=== PATIENT | female | born 1950 | race African-American/Black ===

== ENCOUNTER 2016-11-07 17:20 | Inpatient (IN) | payer MEDICARE, BC ==
[~2016-11-07] VITALS: Ht 167.6 cm; Wt 72.6 kg
[2016-11-07 17:23] VITALS: BP 137/84
[2016-11-07] MEDS ORDERED: Morphine Sulfate 4mg/ml Inj IM ONE (18:30)
--- NOTE | 2016-11-07 19:03 | Emergency Room Report ---
History of Present Illness General Chief Complaint: Lower Back Pain or Injury Source: EMS (CARMELITA MADRIGAL P.A.) Present Illness HPI Patient brought in by ambulance complains of left-sided leg pain for 3 days. States that she has been having a cough cold and cough very hard and after she started experiencing severe low back pain is progressively got worse. Patient states that she went to urgent care and had x-rays that were negative and was discharged home with most relaxer ibuprofen and [place] which is taken with the complaints without improvement of symptoms. Patient states now that her pain has gotten worse it travels down the left leg and terminates into the left heel. States that her left leg feels very weak she is unable to walk on her left leg while experiencing difficulty lifting her left foot. States that because she cannot walk on her leg she called an ambulance to come in for evaluation. Patient denies any numbness, tingling, pressure, paralysis, cyanosis , bruising, loss of sensation, saddle Anesthesia, or incontienance. (CARMELITA MADRIGAL P.A.) Allergies: Coded Allergies: No Known Allergies (Unverified , 11/07/16) Patient History Past Medical History: see triage record Pertinent Family History: none Now: No Reviewed Nursing Documentation: PMH: Agreed, PSxH: Agreed (CARMELITA MADRIGAL P.ADouglas) Nursing Documentation-PMH Past Medical History: No Stated History (CARMELITA MADRIGAL P.ADouglas) Review of Systems All Other Systems: negative except mentioned in HPI (CARMELITA MADRIGAL P.A.) Physical Exam Vital Signs Date Time Temp Pulse Resp B/P Pulse Ox O2 Delivery O2 Flow Rate FiO2 11/07/16 17:17 80 15 137/84 95 Room Air Sp02 EP Interpretation: reviewed, normal General Appearance: no apparent distress, alert, GCS 15, non-toxic Head: normocephalic, atraumatic Neck: full range of motion, supple/symm/no masses Respiratory: chest non-tender, lungs clear, normal breath sounds, speaking full sentences Cardiovascular #1: regular rate, rhythm, no edema Cardiovascular #2: 2+ femoral (L), 2+ dorsalis pedis (R), 2+ dorsalis pedis (L) Gastrointestinal: normal bowel sounds, non tender, soft, non-distended, no guarding, no rebound Musculoskeletal: digits/nails normal, no calf tenderness, decreased range of motion - Left leg unable to perform straight leg raise due to pain, other - Patient not ambulatory, tender - Left sacrum / lumbar Neurologic: alert, oriented x3, responsive, sensory intact, speech normal, motor weakness - Left leg 4/5 flexsion, dorsiflexsion of left foot 4/5 Psychiatric: judgement/insight normal, memory normal, mood/affect normal, no suicidal/homicidal ideation Skin: normal color, no rash, warm/dry, well hydrated Lymphatic: no adenopathy (CARMELITA MADRIGAL P.A.) Medical Decision Making PA Attestation Dr. Baron is my supervising physician with whom patient management has been discussed with. (CARMELITA MADRIGAL P.A.) Diagnostic Impression: Primary Impression: Sacral fracture Qualified Codes: S32.110A - Nondisplaced zone i fracture of sacrum, initial encounter for closed fracture Additional Impression: L5 vertebral fracture Qualified Codes: S32.058A - Other fracture of fifth lumbar vertebra, initial encounter for closed fracture ER Course Pt. presents to the ED c/o Left leg and back pain Ddx considered but are not limited to fracture, pyelonephritis, kidney stone, sciatica, transverse mylenitis, muscle strain Vital signs: are WNL, pt. is afebrile H&PE are most consistent with Nondisplaced fracture of right transverse process of L5 and Nondisplaced bilateral sacral alar fracture. ORDERS: CT Scan Lumbar Spine, CBC, CMP, PT/PTT INR ED INTERVENTIONS: Morphine DISCHARGE: At this time pt. is to be admitted for continued care and management by ortho. Care plan and follow up instructions have been discussed with the patient prior to discharge. (CARMELITA MADRIGAL P.A.) ER Course The patient was noted to have sacral fracture. This appears to be related to the patient's osteoporosis. Patient was discussed with Dr. Andrzej Saldaña for orthopedic consult the patient was also discussed with Dr. Bonner for inpatient management. EKG interpreted by me normal sinus rhythm with a rate of [address] or T wave changes. Labs Test 11/07/16 19:25 White Blood Count 8.1 K/UL (4.8-10.8) Red Blood Count 4.80 M/UL (4.20-5.40) Hemoglobin 13.6 G/DL (12.0-16.0) Hematocrit 40.5 % (37.0-47.0) Mean Corpuscular Volume 84 FL (80-99) Mean Corpuscular Hemoglobin 28.2 PG (27.0-31.0) Mean Corpuscular Hemoglobin Concent 33.5 G/DL (32.0-36.0) Red Cell Distribution Width 11.6 % (11.6-14.8) Platelet Count 304 K/UL (150-450) Mean Platelet Volume 6.6 FL (6.5-10.1) Neutrophils (%) (Auto) % (45.0-75.0) Lymphocytes (%) (Auto) % (20.0-45.0) Monocytes (%) (Auto) % (1.0-10.0) Eosinophils (%) (Auto) % (0.0-3.0) Basophils (%) (Auto) % (0.0-2.0) Differential Total Cells Counted 100 Neutrophils % (Manual) 57 % (45-75) Lymphocytes % (Manual) 16 % (20-45) Monocytes % (Manual) 8 % (1-10) Eosinophils % (Manual) 19 % (0-3) Basophils % (Manual) 0 % (0-2) Band Neutrophils 0 % (0-8) Platelet Estimate Adequate Platelet Morphology Normal Red Blood Cell Morphology Normal Prothrombin Time 10.7 SEC (9.30-11.50) Prothromb Time International Ratio 1.1 (0.9-1.1) Activated Partial Thromboplast Time 24 SEC (23-33) Sodium Level 141 mEQ/L (135-145) Potassium Level 3.6 mEQ/L (3.4-4.9) Chloride Level 98 mEQ/L (98-107) Carbon Dioxide Level 25 mEQ/L (20-30) Anion Gap 18 (5-15) Blood Urea Nitrogen 7 mg/dL (7-23) Creatinine 0.6 mg/dL (0.5-0.9) Estimat Glomerular Filtration Rate > 60 mL/min (>60) Glucose Level 74 mg/dL (74-106) Calcium Level 9.0 mg/dL (8.6-10.2) Total Bilirubin 0.4 mg/dL (0.0-1.2) Aspartate Amino Transf (AST/SGOT) 21 U/L (5-40) Alanine Aminotransferase (ALT/SGPT) 17 U/L (3-33) Alkaline Phosphatase 122 U/L (35-104) Total Protein 7.3 g/dL (6.6-8.7) Albumin 3.5 g/dL (3.5-5.2) Globulin 3.8 g/dL Albumin/Globulin Ratio 0.9 (1.0-2.7) (Ry Baron) CT/MRI/US Diagnostic Results CT/MRI/US Diagnostic Results : Imaging Test Ordered: CT Lumbar w/o Contrast Impression Hypodense lesion measuring about 2.7 cm posterior left kidney is likely a cyst but cannot be fully characterized due to lack of IV contrast. Nondisplaced fracture of right transverse process of L5. Nondisplaced bilateral sacral alar fractures (CARMELITA MADRIGAL) Last Vital Signs Date Time Temp Pulse Resp B/P Pulse Ox O2 Delivery O2 Flow Rate FiO2 11/07/16 17:23 15 137/84 95 Room Air 11/07/16 17:17 80 Status: unchanged (CARMELITA MADRIGAL) Disposition: ADMITTED INPATIENT Condition: Serious Referrals: NON PHYSICIAN (PCP) CARMELITA MADRIGAL Nov 07, 2016 19:03 Ry Baron Nov 07, 2016 21:31
[2016-11-07 19:41] LABS: MEAN CORPUSCULAR HEMOGLOBIN 28.2 PG (27.0-31.0); MEAN CORPUSCULAR HGB CONC 33.5 G/DL (32.0-36.0); MEAN CORPUSCULAR VOLUME 84 FL (80-99); MEAN PLATELET VOLUME 6.6 FL (6.5-10.1); PLATELET COUNT 304 K/UL (150-450); RED CELL DISTRIBUTION WIDTH 11.6 % (11.6-14.8); WHITE BLOOD COUNT 8.1 K/UL (4.8-10.8)
[2016-11-07 19:57] LABS: INR 1.1 (0.9-1.1); PROTHROMBIN TIME 10.7 SEC (9.30-11.50)
[2016-11-07 19:58] LABS: ALANINE AMINOTRANSFERASE 17 U/L (3-33); ALBUMIN/GLOBULIN RATIO 0.9 (1.0-2.7); ANION GAP 18 (5-15); ASPARTATE AMINO TRANSFERASE 21 U/L (5-40); CARBON DIOXIDE 25 mEQ/L (20-30); CHLORIDE 98 mEQ/L (98-107); CREATININE 0.6 mg/dL (0.5-0.9); GLOMERULAR FILTRATION RATE > 60 mL/min (>60); HEMOLYSIS 0; POTASSIUM 3.6 mEQ/L (3.4-4.9); SODIUM 141 mEQ/L (135-145); TOTAL PROTEIN 7.3 g/dL (6.6-8.7)
[2016-11-07 20:17] LABS: BAND NEUTROPHILS % (MANUAL) 0 % (0-8); BASOPHILS % (MANUAL) 0 % (0-2); EOSINOPHILS % (MANUAL) 19 % (0-3); LYMPHOCYTES % (MANUAL) 16 % (20-45); NEUTROPHILS % (MANUAL) 57 % (45-75); PLATELET ESTIMATE ADEQUATE; PLATELET MORPHOLOGY NORMAL; TOTAL CELLS COUNTED 100
[2016-11-07 20:26] VITALS: BP 150/80
[2016-11-07] MEDS ORDERED: Morphine Sulfate 2mg/ml Inj IVP ONE (21:00)
[2016-11-07] MEDS ORDERED: SYNTHROID25 MCG ORAL (21:41)
[2016-11-07] MEDS ORDERED: CYTOMEL5 MCG ORAL (21:41)
[2016-11-07 23:30] VITALS: BP 146/82
[2016-11-08 01:35] VITALS: BP 143/85
[2016-11-08] MEDS ORDERED: Morphine Sulfate 4mg/ml Inj IVP ONE ×2 (03:00→07:00)
[2016-11-08 04:00] VITALS: BP 136/84
[2016-11-08] MEDS ORDERED: Lidocaine 1% MPF 10mg/ml 5ml ONE (05:42)
[2016-11-08 06:30] VITALS: BP 132/86
[2016-11-08] MEDS ORDERED: Heparin 5000 units/ml inj SUBQ ONE (09:00)
[2016-11-08] MEDS: Liothyronine 5mcg tab ORAL SCH (09:00)
[2016-11-08] MEDS ORDERED: Morphine Sulfate 2mg/ml Inj IVP ONE ×2 (09:00→13:15)
[2016-11-08] MEDS ORDERED: Morphine Sulfate 4mg/ml Inj IVP PRN (09:45)
[2016-11-08] MEDS: Heparin 5000 units/ml inj SUBQ SCH ×2 (10:01→20:22)
--- NOTE | 2016-11-08 10:43 | Diagnostic Imaging Report ---
Indication: Back pain and trauma Technique: Continuous helical transaxial imaging of the lumbar spine was obtained from the lung bases to the pubic symphysis. No IV contrast was administered. Coronal 2-D reformats were also obtained. Study obtained in a Siemens sensation [address] Total Dose length Product (DLP): [address] Dose Index Volume (CTDIvol): 14 mGy Comparison: None Findings: There is an acute fracture involving the sacrum bilaterally. This is associated with a slight kyphotic angulation of the sacrum on transvaginal images. There is a nondisplaced fracture involving the right transverse process of L5. There is no malalignment otherwise. Remainder the lumbar spine is normal. No hematoma identified. Impression: Incompletely visualized acute bilateral sacral ala fractures. Associated kyphotic deformity. Acute right L5 transverse process fracture. [facility] has communicated the preliminary results to the Emergency Department. Their findings are largely concordant with this report. The CT scanner at [facility] is accredited by the [employer] and the scans are performed using protocols designed to limit radiation exposure to as low as reasonably achievable to attain images of sufficient resolution adequate for diagnostic evaluation.
[2016-11-08] MEDS ORDERED: Benzonatate 100mg Perles ORAL ONE (11:30)
[2016-11-08] MEDS ORDERED: Tylenol #3 tab (300mg/30mg) ORAL ONE (11:30)
[2016-11-08 15:26] VITALS: BP 127/76
[2016-11-08] MEDS ORDERED: Morphine Sulfate 2mg/ml Inj IVP PRN (17:00)
[2016-11-08] MEDS ORDERED: Morphine Sulfate 2mg/ml Inj IVP SCH (18:00)
[2016-11-08] MEDS: Morphine Sulfate 4mg/ml Inj IVP PRN ×3 (18:41→23:55)
[2016-11-08 20:00] VITALS: BP 136/80
--- NOTE | 2016-11-08 22:38 | History and Physical Report ---
DATE OF ADMISSION: 11/08/2016 REASON FOR ADMISSION: Sacral fracture. HISTORY OF PRESENT ILLNESS: The patient is a 66-year-old female brought in by ambulance due to left-sided leg pain for the past three days. The patient apparently had cold and cough, apparently was coughing very hard, and she experienced severe lower back pain. The patient elected to be in acute care and x-ray was apparently reportedly negative. She was given ibuprofen and [place], but the pain did not improve. The patient's pain continues to worsen in the left leg and radiation to the left heel. She often noted some left-side weakness and presented to the emergency room. In the emergency room, the patient was seen and evaluated. The patient did undergo imaging with CT of the lumbar spine. The patient was noted to have a nondisplaced fracture of the right transverse process of L5 and nondisplaced bilateral sacral alar fracture. The patient's care was discussed with Orthopedic Surgery and was felt to be nonsurgical at this time. The patient is now being admitted for pain control. PAST MEDICAL HISTORY: Notable for hypothyroidism. MEDICATIONS: Reviewed. ALLERGIES: Reviewed. SOCIAL HISTORY: The patient is otherwise independent. Nonsmoker and nondrinker. FAMILY HISTORY: Otherwise noncontributory. REVIEW OF SYSTEMS: Otherwise negative. PHYSICAL EXAMINATION: GENERAL: The patient is a well-developed female, has mild pain. VITAL SIGNS: Blood pressure 132/86, pulse 76, respiratory rate 15, temperature 98.4 degrees, and saturation 99%. HEENT: Fairly negative. Extraocular movements are grossly intact. Oropharynx otherwise moist. NECK: Otherwise supple. LUNGS: Fairly clear. Symmetric. No rhonchi or wheezes. CARDIAC: S1 and S2. Regular rate and rhythm without clear murmurs, rubs, or gallops. ABDOMEN: Soft, nontender, and nondistended. EXTREMITIES: No cyanosis or clubbing. No significant edema. NEUROLOGIC: The patient is nonambulatory. She has pain in the left leg. Unable to perform straight leg raise due to pain. There is tenderness to right sacrum. LABORATORY DATA: The patient's lab data reviewed. Medications reviewed. IMPRESSION: 1. Acute nondisplaced fracture of the right transverse process of L5. 2. Nondisplaced bilateral sacral alar fractures. 3. severe pain 4. hypothyroid RECOMMENDATIONS: Admit for pain control. Physical therapy. Possible home health physical therapy versus acute rehabilitation was discussed with the patient and discussed with Orthopedic Surgery. Care discussed and reviewed. Follow clinically and assist with discharge planning. Dimitris Bonner M.D. DR: Ankush JOB#: [id number] CC: ELIANA
[2016-11-08] MEDS ORDERED: Zolpidem 5mg tab ORAL PRN (22:45)
[2016-11-09 00:37] VITALS: BP 142/86
[2016-11-09] MEDS: guaiFENesin w/Codeine 5ml Liq ud ORAL PRN ×2 (01:41→12:04)
[2016-11-09] MEDS: Morphine Sulfate 4mg/ml Inj IVP PRN ×7 (02:53→22:25)
[2016-11-09 04:00] VITALS: BP 146/90
[2016-11-09 08:00] VITALS: BP 149/85
--- NOTE | 2016-11-09 08:25 | General Progress Note ---
Assessment/Plan Assessment/Plan IMPRESSION: 1. Acute nondisplaced fracture of the right transverse process of L5. 2. Nondisplaced bilateral sacral alar fractures. 3. hypothyroid 4. significant pain PLAN pain rx dilaudid ortho follow up needed continue as is may need rehab impression, plan, and exam edited and reviewed in detail care discussed with RN Subjective Allergies: Coded Allergies: No Known Allergies (Unverified , 11/07/16) Subjective still in pain morphine not adequate Objective Last 24 Hour Vital Signs Date Time Temp Pulse Resp B/P Pulse Ox O2 Delivery O2 Flow Rate FiO2 11/09/16 04:00 98.2 89 21 146/90 91 Room Air 11/09/16 00:37 99.5 93 20 142/86 91 Room Air 11/08/16 20:00 98.6 101 20 136/80 91 Room Air 11/08/16 16:31 98.1 85 16 127/76 94 Room Air 11/08/16 15:26 98.1 85 16 127/76 94 Room Air 11/08/16 12:30 98.6 Intake and Output 11/08/16 11/09/16 19:00 07:00 Intake Total 1100 ml Output Total 500 ml Balance -500 ml 1100 ml Intake Oral 300 ml IV Total 800 ml Output Urine Total 500 ml # Voids 3 Height (Feet): 5 Height (Inches): 6.00 Weight (Pounds): 160 Objective GENERAL: The patient is a well-developed female, with ongoing pain HEENT: Fairly negative. NECK: Otherwise supple. LUNGS: Fairly clear. Symmetric. No rhonchi or wheezes. CARDIAC: S1 and S2. Regular rate and rhythm without clear murmurs, rubs, or gallops. ABDOMEN: Soft, nontender, and nondistended. EXTREMITIES: No cyanosis or clubbing. No significant edema. NEUROLOGIC: The patient is nonambulatory. She has pain in the left leg. Unable to perform straight leg raise due to pain. There is tenderness to right sacrum. COCO KUMAR Nov 09, 2016 08:25
[2016-11-09] MEDS: Heparin 5000 units/ml inj SUBQ SCH ×2 (09:00→22:26)
[2016-11-09] MEDS: Liothyronine 5mcg tab ORAL SCH (09:13)
[2016-11-09] MEDS ORDERED: Liothyronine 5mcg tab ORAL ONE (09:45)
[2016-11-09 12:00] VITALS: BP 150/91
[2016-11-09 16:22] VITALS: BP 156/97
[2016-11-09 20:00] VITALS: BP 140/96
--- NOTE | 2016-11-09 21:38 | Consultation ---
DATE OF CONSULTATION: 11/09/2016 ORTHOPEDIC CONSULTATION CONSULTING PHYSICIAN: Andrzej Saldaña M.D. ([facility] [place] REFERRING PHYSICIAN: Dimitris Bonner M.D. DIAGNOSIS: Nondisplaced bilateral sacral alar insufficiency fractures. HISTORY OF PRESENT ILLNESS: This is a 66-year-old woman, who had three days of left-sided leg pain following severe coughing. She had low back pain as well. She was diagnosed with L5 transverse process fracture and nondisplaced bilateral sacral alar fractures as well. She was admitted for pain control. PAST MEDICAL HISTORY: Significant for hypothyroidism. PHYSICAL EXAMINATION: She is well appearing, in no distress. She has difficulty with straight leg raise bilaterally. She has minimal pain with log rolling of her lower extremities. Distal neurovascular examination is grossly intact. DIAGNOSTIC DATA: CT scan findings revealed nondisplaced insufficiency fractures of the sacral ala. ASSESSMENT AND RECOMMENDATION: The patient is a 66-year-old with transverse process fracture of the lumbar spine as well as insufficiency fractures of her pelvis. Her pelvic fractures are nonoperative. She can do weightbearing as tolerated when pain permits. She is welcome to follow up as an outpatient in the office at anytime. Thank you for the opportunity to consult. Andrzej Saldaña M.D. ([facility] [place]) DR: LISA JOB#: [id number] CC:
[2016-11-10] VITALS: BP 149/86
[2016-11-10] MEDS: Morphine Sulfate 4mg/ml Inj IVP PRN ×6 (01:29→19:01)
[2016-11-10 04:00] VITALS: BP 141/87
[2016-11-10] MEDS: Liothyronine 5mcg tab ORAL SCH (08:45)
[2016-11-10] MEDS: Heparin 5000 units/ml inj SUBQ SCH ×2 (08:50→22:11)
--- NOTE | 2016-11-10 11:33 | Cardiology Report ---
APPROVED REPORT EKG Measurement Heart [id number] Normal sinus rhythm Normal ECG
--- NOTE | 2016-11-10 11:58 | General Progress Note ---
Assessment/Plan Assessment/Plan IMPRESSION: 1. Acute nondisplaced fracture of the right transverse process of L5. 2. Nondisplaced bilateral sacral alar fractures. 3. hypothyroid 4. significant pain PLAN pain rx dilaudid and soma ortho follow up needed continue as is may need rehab will put in eval for ARU impression, plan, and exam edited and reviewed in detail care discussed with RN Subjective Allergies: Coded Allergies: No Known Allergies (Unverified , 11/07/16) Subjective still in pain morphine not adequate changed to dilaudid soma Objective Last 24 Hour Vital Signs Date Time Temp Pulse Resp B/P Pulse Ox O2 Delivery O2 Flow Rate FiO2 11/10/16 09:15 98.1 11/10/16 04:00 97.9 84 18 141/87 97 Nasal Cannula 2.0 11/10/16 00:00 98.1 95 18 149/86 97 Nasal Cannula 2.0 11/09/16 20:00 98.1 90 18 140/96 97 Nasal Cannula 2.0 11/09/16 16:22 98.2 89 18 156/97 96 Nasal Cannula 2.0 11/09/16 13:48 93 Nasal Cannula 2.0 11/09/16 12:00 97.9 84 18 150/91 92 Nasal Cannula 2.0 Intake and Output 11/09/16 11/10/16 19:00 07:00 Intake Total 1920 ml 1840 ml Output Total 600 ml Balance 1920 ml 1240 ml Intake Oral 420 ml 1040 ml IV Total 1500 ml 800 ml Output Urine Total 600 ml # Voids 1 3 Height (Feet): 5 Height (Inches): 6.00 Weight (Pounds): 160 Objective GENERAL: The patient is a well-developed female, with ongoing pain HEENT: Fairly negative. NECK: Otherwise supple. LUNGS: Fairly clear. Symmetric. No rhonchi or wheezes. CARDIAC: S1 and S2. Regular rate and rhythm without clear murmurs, rubs, or gallops. ABDOMEN: Soft, nontender, and nondistended. EXTREMITIES: No cyanosis or clubbing. No significant edema. NEUROLOGIC: The patient is nonambulatory. She has pain in the left leg. still with pain with any movement COCO KUMAR Nov 10, 2016 11:58
[2016-11-10 12:00] VITALS: BP 138/64
--- NOTE | 2016-11-10 16:20 | Diagnostic Imaging Report ---
Indication: Left leg and low back pain. Recent abnormal CT scan Technique: Sagittal T1 fast spin echo, sagittal STIR, sagittal T2 FRFSE, axial T1, axial T2 fat saturated coronal oblique T1 fast spin echo, coronal STIR images of the sacrum Comparison: CT scan 11/07/2016 Findings: Abnormal decreased T1, abnormal STIR marrow signal are seen within the Central sacrum, predominantly within the S2 segment. A small amount of marrow signal abnormality is seen in the inferior S1 segment centrally, adjacent to the disc. There is anterior angulation of the S2 cortex. This corresponds to the abnormalities demonstrated on recent CT. Abnormal marrow signal extends into the sacral alae bilaterally. This appears diffuse on the STIR images, more focal and angulated on the T1-weighted images. This is fairly symmetrical. This also corresponds to the abnormalities described on recent CT. The coronal STIR images suggest marrow edema well below the S2 segment, centrally but this is not corroborated on the other sequences. There considerable edema of the presacral fat. There is also suggestion of a small amount of free pelvic fluid. There is suggestion of some high signal within the right L5 transverse process visible on the axial T2-weighted images, not clearly evident on the other sequences. The visualized lumbar segments are unremarkable. Visualized portions of the iliac bone are unremarkable. The bladder is distended. The uterus demonstrates multiple areas of abnormal mixed echogenicity, most likely representing multiple fibroids. Impression: Abnormal marrow signal within the central sacrum and bilateral sacral sacral wings, consistent with marrow edema. The distribution of such is concordant with the location of the acute fractures of the anterior S2 cortex and bilateral sacral wings described on recent CT. Buckling of the central S2 to cortex with angulation is consistent with the fracture described on recent CT as well Equivocal abnormal signal within the right L5 transverse process, correlating with L5 transverse process fracture which is much better visualized on the recent CT scan. Edema of the presacral fat, likely related to the above bony trauma Free fluid within the pelvis. This may be posttraumatic, but other etiologies also a possibility. Note that this is not physiologic in a postmenopausal female Fairly extensive uterine fibroids
[2016-11-10 16:24] VITALS: BP 150/91
--- NOTE | 2016-11-10 16:31 | Diagnostic Imaging Report ---
Indication: PAIN Technique: Sagittal T1 and T2 fast spin echo, sagittal STIR, axial T2 FRFSE, axial T1 FLAIR PROPELLER, axial T2 fat saturated FRFSE, axial T2 PROPELLER disc cuts Comparison: Reference made to lumbar spine CT 11/07/2016 Findings: Abnormal marrow signal and abnormal angulation within the S2 body centrally, and abnormal marrow signal throughout both sacral alae is demonstrated, consistent with the fractures described on recent CT. This is described in greater detail on sacral MRI performed at the same time. The vertebral body heights are preserved. The vertebral body marrow signal is preserved. There is abnormal increased T2 and STIR signal within the right L5 transverse process, consistent with a fracture of that structure demonstrated on recent CT. No other significant marrow abnormality is demonstrated. There is considerable increased STIR signal within the paraspinous musculature which is fairly symmetric bilaterally, extending from about L2 to the L5 level. The disc spaces are preserved. No significant disc bulge or protrusion, spinal stenosis, or neural foraminal stenosis demonstrated at any level. Incidentally noted is a 2.5 cm left renal cyst Impression: Marrow signal abnormality of the right L5 transverse process, corresponding to the acute fracture described on recent lumbar spine CT Considerable signal abnormality of the paraspinous musculature extending from about L2 to L5. This is consistent with muscular strain Signal abnormality of the sacrum, as described, consistent with sacral fractures described on prior CT and sacral MRI performed contemporaneously with the current study No evidence of significant disc pathology or neural impingement Incidental finding of 2.5 cm left renal cyst
[2016-11-10] MEDS: Levofloxacin 500mg tab ORAL SCH (18:53)
[2016-11-10 20:00] VITALS: BP 146/88
[2016-11-11 04:00] VITALS: BP 138/79
[2016-11-11 08:00] VITALS: BP 145/94
--- NOTE | 2016-11-11 08:35 | Diagnostic Imaging Report ---
Indication: COUGH Technique: One view of the chest Comparison: none Findings: Lungs and pleural spaces are clear. Heart size is normal Impression: No acute process
--- NOTE | 2016-11-11 08:48 | General Progress Note ---
Assessment/Plan Assessment/Plan IMPRESSION: 1. Acute nondisplaced fracture of the right transverse process of L5. 2. Nondisplaced bilateral sacral alar fractures. 3. hypothyroid 4. significant pain 5. respiratory congestion PLAN pain rx dilaudid and soma ortho follow up noted continue as is albuterol as needed levaquin empiric chest xr negative dc planning as patient with too much pain for home will put in eval for ARU impression, plan, and exam edited and reviewed in detail care discussed with RN Subjective Allergies: Coded Allergies: No Known Allergies (Unverified , 11/07/16) Subjective still in pain morphine not adequate changed to dilaudid soma prn some cough and congestion Objective Last 24 Hour Vital Signs Date Time Temp Pulse Resp B/P Pulse Ox O2 Delivery O2 Flow Rate FiO2 11/11/16 08:00 97.7 88 20 145/94 94 Nasal Cannula 2.0 11/11/16 04:00 98.1 79 20 138/79 96 Nasal Cannula 2.0 11/10/16 21:16 96 Nasal Cannula 2.0 28 11/10/16 21:14 82 20 Nasal Cannula 2.0 28 11/10/16 20:00 98.2 86 19 146/88 98 Nasal Cannula 2.0 11/10/16 19:30 Nasal Cannula 2.0 28 11/10/16 16:24 98.2 85 19 150/91 99 Room Air 11/10/16 15:22 98.1 11/10/16 15:22 98.1 11/10/16 12:00 98.1 76 20 138/64 98 Room Air Intake and Output 11/10/16 11/11/16 19:00 07:00 Intake Total 1100 ml 1080 ml Balance 1100 ml 1080 ml Intake Oral 600 ml 480 ml IV Total 500 ml 600 ml # Voids 4 6 Height (Feet): 5 Height (Inches): 6.00 Weight (Pounds): 160 Objective GENERAL: The patient is a well-developed female, with ongoing pain HEENT: Fairly negative. NECK: Otherwise supple. LUNGS: occasional rhonchi; otherwise clear CARDIAC: S1 and S2. Regular rate and rhythm without clear murmurs, rubs, or gallops. ABDOMEN: Soft, nontender, and nondistended. EXTREMITIES: No cyanosis or clubbing. No significant edema. NEUROLOGIC: The patient is nonambulatory. still with pain with change of position COCO KUMAR Nov 11, 2016 08:48
[2016-11-11] MEDS: Liothyronine 5mcg tab ORAL SCH (09:13)
[2016-11-11] MEDS: Heparin 5000 units/ml inj SUBQ SCH ×2 (09:15→20:38)
[2016-11-11] MEDS: Albuterol ud Inhalation HHN PRN ×2 (10:15→14:47)
[2016-11-11 12:00] VITALS: BP 138/86
[2016-11-11] MEDS: HYDROmorphone 1mg/ml Carpuject IVP PRN ×3 (13:40→20:28)
[2016-11-11 16:00] VITALS: BP 141/77
[2016-11-11] MEDS: Levofloxacin 500mg tab ORAL SCH (18:40)
[2016-11-11 20:00] VITALS: BP 136/88
[2016-11-12 00:27] VITALS: BP 140/87
[2016-11-12] MEDS: Albuterol ud Inhalation HHN PRN ×2 (01:26→07:23)
[2016-11-12 04:00] VITALS: BP 131/80
--- NOTE | 2016-11-12 05:57 | General Progress Note ---
Assessment/Plan Assessment/Plan IMPRESSION: 1. Acute nondisplaced fracture of the right transverse process of L5. 2. Nondisplaced bilateral sacral alar fractures. 3. hypothyroid 4. significant pain 5. respiratory congestion PLAN pain rx dilaudid and soma ortho follow up noted incentive allegra continue as is albuterol as needed levaquin empiric dc to SNF; patient to decide location; awaiting placement impression, plan, and exam edited and reviewed in detail care discussed with RN Subjective Allergies: Coded Allergies: No Known Allergies (Unverified , 11/07/16) Subjective pain controlled with dilaudid soma prn improved cough and congestion Objective Last 24 Hour Vital Signs Date Time Temp Pulse Resp B/P Pulse Ox O2 Delivery O2 Flow Rate FiO2 11/12/16 01:36 96 17 Nasal Cannula 2.0 28 11/12/16 01:32 28 11/12/16 01:28 97 18 100 Nasal Cannula 2.0 28 11/12/16 00:27 98.2 87 22 140/87 98 Room Air 11/11/16 20:11 Nasal Cannula 2.0 28 11/11/16 20:11 96 Nasal Cannula 2.0 28 11/11/16 20:10 76 18 Nasal Cannula 2.0 28 11/11/16 20:00 99.7 86 19 136/88 97 Nasal Cannula 2.0 11/11/16 16:00 98.2 85 20 141/77 95 Nasal Cannula 2.0 11/11/16 14:58 86 16 Nasal Cannula 2.0 28 11/11/16 14:48 83 20 99 Nasal Cannula 2.0 28 11/11/16 12:00 97.8 65 19 138/86 99 Nasal Cannula 2.0 11/11/16 10:22 89 18 Nasal Cannula 2.0 28 11/11/16 10:13 87 20 98 Nasal Cannula 2.0 28 11/11/16 08:00 97.7 88 20 145/94 94 Nasal Cannula 2.0 11/11/16 07:52 75 18 Nasal Cannula 2.0 28 11/11/16 07:52 95 Nasal Cannula 2.0 28 11/11/16 07:52 Nasal Cannula 2.0 28 Intake and Output 11/11/16 11/12/16 19:00 07:00 Intake Total 1620 ml 740 ml Balance 1620 ml 740 ml Intake Oral 720 ml 240 ml IV Total 900 ml 500 ml Height (Feet): 5 Height (Inches): 6.00 Weight (Pounds): 160 Objective GENERAL: The patient is a well-developed female, with ongoing pain HEENT: Fairly negative. NECK: Otherwise supple. LUNGS: reduced rhonchi; otherwise clear CARDIAC: S1 and S2. Regular rate and rhythm without clear murmurs, rubs, or gallops. ABDOMEN: Soft, nontender, and nondistended. EXTREMITIES: No cyanosis or clubbing. No significant edema. NEUROLOGIC: in bed; nonfocal but still with pain with change of position and minimal movement COCO KUMAR Nov 12, 2016 05:57
[2016-11-12 08:09] VITALS: BP 146/90
[2016-11-12] MEDS: Liothyronine 5mcg tab ORAL SCH (08:37)
[2016-11-12] MEDS: Heparin 5000 units/ml inj SUBQ SCH ×2 (08:39→21:42)
[2016-11-12 12:00] VITALS: BP 142/84
--- NOTE | 2016-11-12 12:45 | Diagnostic Imaging Report ---
APPROVED REPORT CPT Code: 83644 Present Symptoms Comments: Back and knee pain BILATERAL: Imaging reveals a patent deep venous system bilaterally. There is no evidence of thrombus within the femoral, popliteal or tibial segments. The greater saphenous veins are also within normal limits. Doppler indicates normal spontaneous flow within these segments.
[2016-11-12 16:00] VITALS: BP 137/95
[2016-11-12] MEDS: Levofloxacin 500mg tab ORAL SCH (18:48)
[2016-11-12] MEDS: HYDROmorphone 1mg/ml Carpuject IVP PRN ×2 (18:48→22:28)
[2016-11-12 20:00] VITALS: BP 144/103
[2016-11-13] MEDS: Albuterol ud Inhalation HHN PRN ×3 (03:15→16:02)
[2016-11-13 04:00] VITALS: BP 149/95
[2016-11-13 08:00] VITALS: BP 130/75
--- NOTE | 2016-11-13 08:38 | General Progress Note ---
Assessment/Plan Assessment/Plan IMPRESSION: 1. Acute nondisplaced fracture of the right transverse process of L5. 2. Nondisplaced bilateral sacral alar fractures. 3. hypothyroid 4. significant pain 5. respiratory congestion PLAN pain rx dilaudid and soma ortho follow up noted and no intervention planned incentive allegra continue as is albuterol as needed levaquin empiric for 5 days dc to SNF today patient agreeable not accepted to [facility] impression, plan, and exam edited and reviewed in detail care discussed with RN Subjective Allergies: Coded Allergies: No Known Allergies (Unverified , 11/07/16) Subjective pain controlled with dilaudid soma prn still not very ambulatory and has pain Objective Last 24 Hour Vital Signs Date Time Temp Pulse Resp B/P Pulse Ox O2 Delivery O2 Flow Rate FiO2 11/13/16 08:00 98.2 86 21 130/75 97 Nasal Cannula 2.0 11/13/16 05:46 98.2 11/13/16 04:00 98.2 86 18 149/95 98 Nasal Cannula 2.0 11/13/16 03:25 103 18 98 Nasal Cannula 2.0 28 11/13/16 03:11 114 22 93 Nasal Cannula 2.0 28 11/12/16 20:18 Room Air 11/12/16 20:18 96 Room Air 21 11/12/16 20:17 88 16 Room Air 21 11/12/16 20:00 98.4 100 18 144/103 98 Room Air 11/12/16 16:00 98.2 91 16 137/95 96 Room Air 11/12/16 12:00 98.0 80 20 142/84 98 Room Air Intake and Output 11/12/16 11/13/16 18:59 06:59 Intake Total 940 ml 1040 ml Output Total 500 ml Balance 940 ml 540 ml Intake Oral 240 ml 1040 ml IV Total 700 ml Output Urine Total 500 ml # Voids 4 Height (Feet): 5 Height (Inches): 6.00 Weight (Pounds): 160 Objective GENERAL: The patient is a well-developed female, with ongoing pain HEENT: Fairly negative. NECK: Otherwise supple. LUNGS: reduced rhonchi; otherwise clear CARDIAC: S1 and S2. Regular rate and rhythm without clear murmurs, rubs, or gallops. ABDOMEN: Soft, nontender, and nondistended. EXTREMITIES: No cyanosis or clubbing. No significant edema. NEUROLOGIC: in bed; nonfocal but still with pain with change of position and minimal movement COCO KUMAR Nov 13, 2016 08:38
[2016-11-13] MEDS: Liothyronine 5mcg tab ORAL SCH (08:57)
[2016-11-13] MEDS: Heparin 5000 units/ml inj SUBQ SCH (09:21)
[2016-11-13 12:00] VITALS: BP 145/84
[2016-11-13] MEDS ORDERED: Influenza Virus Vaccine 0.5ml IM ONE ×2 (13:30→14:00)
[2016-11-13 16:00] VITALS: BP 133/80
[2016-11-16] MEDS ORDERED: SOMA350 MG PO (11:32)
[2016-11-16] MEDS ORDERED: NORCO 5-325 TA1 EACH ORAL (11:32)
--- NOTE | 2016-11-16 11:40 | Discharge Summary ---
Discharge Summary Hospital Course Date of Admission Nov 07, 2016 at 19:09 Date of Discharge Nov 13, 2016 at 17:00 Admitting Diagnosis sacral fracture HPI Teri Nevarez is a 66 year old female who was admitted on Nov 07, 2016 at 19: 09 for Sacral Fracture Hospital Course dc summary #[id number] Discharge Medications New Medications: Carisoprodol* (Soma*) 350 Mg Tablet 350 MG PO Q6H PRN, #30 TAB Hydrocodone Bit/Acetaminophen 5-325* ([place] 5-325*) 1 Each Tablet 1 TAB ORAL Q6H PRN, #30 TAB 0 Refills Continued Medications: Levothyroxine Sodium* (Synthroid*) 25 Mcg Tablet 25 MCG ORAL DAILY, TAB Take in the morning on an empty stomach, at least 30 minutes before food. Liothyronine Sodium* (Cytomel*) 5 Mcg Tablet 5 MCG ORAL DAILY, TAB Discharge Condition Upon Discharge: stable Discharge Disposition Patient was discharged to SNF/Subacute Facility(03) Discharge Diagnoses: Discharge Instructions Discharge Instructions Special Instructions I have been assigned to complete a D/C Summary on this account. I was not involved in the patient management Katia Chadwick NP ([place]tein) Nov 16, 2016 11:40
--- NOTE | 2016-11-17 00:49 | Discharge Summary 2 SIG ---
DATE OF ADMISSION: 11/07/2016 DATE OF DISCHARGE: 11/13/2016 REASON FOR ADMISSION: 66-year-old female was brought by ambulance due to the left-sided leg pain for the last three days. The patient also experienced severe low back pain. The patient was taking ibuprofen at home but without no relief. The patient stated, that left leg pain continued, with radiation to left heel. She noted some left-sided weakness and presented to emergency room for evaluation. In the emergency room, the patient was seen and evaluated. The patient had a CT of the L-spine, which revealed nondisplaced fracture of the right transverse process of L5 and nondisplaced bilateral sacral alar fracture. Orthopedic surgeon seen the patient and felt that the patient was nonsurgical at this time. The patient was admitted for intractable pain control. ADMITTING DIAGNOSES: 1. Acute nondisplaced fracture of the right transverse process of L5. 2. Nondisplaced bilateral sacral alar fracture. 3. Intractable pain. 4. Hypothyroidism. HOSPITAL STAY: The patient was admitted for pain management. Surgeon seen the patient and felt that the patient was not a surgical candidate. He recommended pain control with weight bearing as tolerated. He recommended to follow up with him as outpatient. Pain management was provided along with a muscle relaxant. Physical and occupational therapists were working with the patient. Fall precautions were maintained. Chest x-ray was negative. Venous duplex bilateral lower extremities was negative. The patient subsequently undergone lumbar spine MRI, which revealed no evidence of neural impingement. The patient was evaluated for acute rehabilitation versus home health, however, the patient was not stable to go home. [facility] [place], acute rehabilitation did not accept the patient. The patient was transferred to retirement facility for short-term rehabilitation. The patient agreed with the plan. DISCHARGE DIAGNOSES: 1. Acute nondisplaced fracture right transverse process L5. 2. Nondisplaced bilateral sacral alar fracture. 3. Intractable pain, controlled -secondary to fracture. 4. Hypothyroidism. DISCHARGE MEDICATIONS: See medication reconciliation list. DISCHARGE INSTRUCTIONS: The patient to follow up with medical doctor at the facility . The patient to follow up with the surgeon as an outpatient. Dimitris Bonner M.D. I have been assigned to dictate discharge summary on this account and I was not involved in the patient's management. Katia Matadarin N.PDouglas DR: BOSSMAN JOB#: [id number] CC: ELIANA
== END 2016-11-13 17:00 | DRG 544 ==
LOC: EDBD 17:20 → EMR 18:10 → 3E 19:09 → EDBEDREQ 11-08 16:04 → EMR 11-08 16:34 → 3E 11-08 16:43 → UNDOADMIN 11-08 16:43
DX: M80.88XA Other osteoporosis with current pathological fracture, vertebra(e), initial encounter for fracture (principal); E03.9 Hypothyroidism, unspecified; Z23 Encounter for immunization
CPT/HCPCS: 36415; 71010; 72131; 72148; 72195; 80053; 85007; 85025; 85610; 85730; 86850; 86900; 86901; 93005; 93970; 94640; 94664; 94760; Q2036

== ENCOUNTER 2018-12-02 12:28 | Inpatient (IN) | payer BC, MEDICARE ==
[~2018-12-02] VITALS: Ht 162.6 cm; Wt 59.0 kg
[~2018-12-02 12:28] MED LIST: CYTOMEL5 MCG ORAL; NORCO 5-325 TA1 EACH ORAL; SOMA350 MG PO; SYNTHROID25 MCG ORAL
[2018-12-02] MEDS ORDERED: Solu-MEDROL 125mg Inj IVP ONE (13:00)
[2018-12-02] MEDS ORDERED: Ipratropium 0.02% Inh Soln 2.5ml UD HHN ONE (13:00)
--- NOTE | 2018-12-02 13:20 | Emergency Room Report ---
History of Present Illness General Chief Complaint: Dyspnea/Respdistress Source: Patient, Friend Present Illness HPI Patient was seen at [facility] on Wednesday. She was treated in the waiting room with breathing treatments. By the time she had. She was "better". She's having coughing and dyspnea and wheezing. Phlegm somewhat yellow but mostly clear and cough is non-productive. Denies significant chest pain. This is her worst attack. She's been on prednisone in the past. Never intubated. Diagnosed 2 years ago. According to friend she gets severely dyspneic frequently with cough. Never smoker or exposed to smoke. Not UTD on vaccinations. No NVD, dysuria, joint pain, headache, rashes, calf pain or edema. No depression. Admitted 2017 for sacral fracture. D/C dx: 1. Acute nondisplaced fracture right transverse process L5. 2. Nondisplaced bilateral sacral alar fracture. 3. Intractable pain, controlled -secondary to fracture. 4. Hypothyroidism. Allergies: Coded Allergies: No Known Allergies (Unverified , 11/07/16) Patient History Past Medical History: see triage record Social History: Denies: smoking Social History Narrative at home Reviewed Nursing Documentation: PMH: Agreed; PSxH: Agreed Review of Systems All Other Systems: negative except mentioned in HPI Physical Exam Vital Signs Date Time Temp Pulse Resp B/P (MAP) Pulse Ox O2 Delivery O2 Flow Rate FiO2 12/02/18 12:40 97.9 110 20 155/107 92 Room Air 12/02/18 13:35 2.0 28 Sp02 EP Interpretation: reviewed, abnormal - Interpreted as low by me General Appearance: alert, GCS 15, mild distress Head: normocephalic, atraumatic Eyes: bilateral eye normal inspection, bilateral eye PERRL ENT: normal pharynx, no angioedema, normal voice, moist mucus membranes Neck: supple Respiratory: wheezing, expiration, other - Paroxysms of cough Cardiovascular #1: no edema, no JVD, tachycardia Cardiovascular #2: 2+ radial (L) Gastrointestinal: normal inspection, normal bowel sounds, non tender Musculoskeletal: back normal, digits/nails normal, normal range of motion, no calf tenderness Neurologic: oriented x3, responsive, grossly normal Psychiatric: mood/affect normal Skin: normal color, no rash, warm/dry Medical Decision Making Diagnostic Impression: Primary Impression: COPD exacerbation Additional Impression: Eosinophilia ER Course Patient with that her worst attack of dyspnea with wheezing. Differential included includes acute myocardial infarction, exacerbation of COPD, bronchitis , pneumonia, pulmonary embolus amongst others. The patient will be evaluated with EKG, chest x-ray and labs. The patient will be treated with Solu Medrol and breathing treatments. She will also receive fairly substantial IV hydration at the moment. EKG without injury. Chest x-ray COPD labs with normal white count and eosinophilia CMP normal. Troponin negative Radiology called with question of nodule R upper lobe. Concern over possible pertussis. Azithromycin and DPT given. Patient somewhat improved with Robitussin with codeine. Still with episodes of coughing. Inhaled lidocaine given. Patient improved but is still hypoxemic. Med telemetry Dr. Bonner. Laboratory Tests Test 12/02/18 13:04 White Blood Count 5.0 K/UL (4.8-10.8) Red Blood Count 4.75 M/UL (4.20-5.40) Hemoglobin 13.7 G/DL (12.0-16.0) Hematocrit 40.4 % (37.0-47.0) Mean Corpuscular Volume 85 FL (80-99) Mean Corpuscular Hemoglobin 28.8 PG (27.0-31.0) Mean Corpuscular Hemoglobin Concent 33.8 G/DL (32.0-36.0) Red Cell Distribution Width 12.6 % (11.6-14.8) Platelet Count 248 K/UL (150-450) Mean Platelet Volume 7.2 FL (6.5-10.1) Neutrophils (%) (Auto) 59.6 % (45.0-75.0) Lymphocytes (%) (Auto) 24.2 % (20.0-45.0) Monocytes (%) (Auto) 10.3 % (1.0-10.0) H Eosinophils (%) (Auto) 4.9 % (0.0-3.0) H Basophils (%) (Auto) 1.0 % (0.0-2.0) Prothrombin Time 10.0 SEC (9.30-11.50) Prothrombin Time INR 0.9 (0.9-1.1) PTT 27 SEC (23-33) Urine Color Pale yellow Urine Appearance Clear Urine pH 6 (4.5-8.0) Urine Specific [place] 1.010 (1.005-1.035) Urine Protein Negative (NEGATIVE) Urine Glucose (UA) Negative (NEGATIVE) Urine Ketones Negative (NEGATIVE) Urine Blood 3+ (NEGATIVE) H Urine Nitrite Negative (NEGATIVE) Urine Bilirubin Negative (NEGATIVE) Urine Urobilinogen Normal MG/DL (0.0-1.0) Urine Leukocyte Esterase Negative (NEGATIVE) Urine RBC 2-4 /HPF (0 - 2) H Urine WBC 0-2 /HPF (0 - 2) Urine Squamous Epithelial Cells Occasional /LPF Urine Bacteria Occasional /HPF (NONE) Sodium Level 142 MMOL/L (136-145) Potassium Level 3.2 MMOL/L (3.5-5.1) L Chloride Level 103 MMOL/L (98-107) Carbon Dioxide Level 30 MMOL/L (21-32) Anion Gap 10 mmol/L (5-15) Blood Urea Nitrogen 6 mg/dL (7-18) L Creatinine 0.8 MG/DL (0.55-1.30) Estimate Glomerular Filtration Rate > 60 mL/min (>60) Glucose Level 105 MG/DL (74-106) Lactic Acid Level 1.40 mmol/L (0.4-2.0) Calcium Level 9.9 MG/DL (8.5-10.1) Total Bilirubin 0.4 MG/DL (0.2-1.0) Aspartate Amino Transferase (AST) 26 U/L (15-37) Alanine Aminotransferase (ALT) 32 U/L (12-78) Alkaline Phosphatase 113 U/L (46-116) Total Creatine Kinase 255 U/L (26-308) Pro-B-Type Natriuretic Peptide 111 pg/mL (0-125) Total Protein 8.4 G/DL (6.4-8.2) H Albumin 3.8 G/DL (3.4-5.0) Globulin 4.6 g/dL Albumin/Globulin Ratio 0.8 (1.0-2.7) L Microbiology Date/Time Source Procedure Growth Status 12/02/18 13:04 Nasal Nares Influenza Types A,B Antigen (NATHANALE) - Final Complete EKG Diagnostic Results Rate: normal Rhythm: NSR ST Segments: no acute changes Rhythm Strip Diag. Results EP Interpretation: yes Rhythm: NSR, no PVC's, no ectopy Chest X-Ray Diagnostic Results Chest X-Ray Diagnostic Results : Chest X-Ray Ordered: Yes # of Views/Limited/Complete: 1 View Indication: Shortness of Breath EP Interpretation: Yes Interpretation: no consolidation, no effusion, no pneumothorax, other - COPD Impression: Other Electronically Signed by: Electronically signed by Andrzej Baca MD Last Vital Signs Date Time Temp Pulse Resp B/P (MAP) Pulse Ox O2 Delivery O2 Flow Rate FiO2 12/02/18 23:12 85 18 96 Nasal Cannula 2.0 28 12/02/18 20:00 98.5 117/62 (80) Status: improved Disposition: ADMITTED INPATIENT Condition: Serious Andrzej Baca MD Dec 02, 2018 13:20
--- NOTE | 2018-12-02 13:20 | NUR ---
ED Nurse Note: pt came in due to difficulty breathing started 8am today. pt stated that its been happening to her since wednesday and got worse this morning. pt stated she was taking nebulization at home. pt denies pain. pt hooked on monitor with vital sign with in normal limit. will continue to monitor.
--- NOTE | 2018-12-02 13:30 | NUR ---
ED Nurse Note: software validation technician on bedside. respiratory therapist giving the nebulization.
[2018-12-02] MEDS: Albuterol ud Inhalation HHN SCH ×3 (13:35→14:17)
[2018-12-02 13:39] LABS: EOSINOPHILS % (AUTO) 4.9 % (0.0-3.0); HEMATOCRIT 40.4 % (37.0-47.0); HEMOGLOBIN 13.7 G/DL (12.0-16.0); LYMPHOCYTES % (AUTO) 24.2 % (20.0-45.0); MEAN CORPUSCULAR VOLUME 85 FL (80-99); MONOCYTES % (AUTO) 10.3 % (1.0-10.0); NEUTROPHILS % (AUTO) 59.6 % (45.0-75.0); PLATELET COUNT 248 K/UL (150-450); RED BLOOD COUNT 4.75 M/UL (4.20-5.40); RED CELL DISTRIBUTION WIDTH 12.6 % (11.6-14.8)
[2018-12-02 13:51] LABS: INR 0.9 (0.9-1.1)
[2018-12-02 13:52] LABS: ANION GAP 10 mmol/L (5-15); BLOOD UREA NITROGEN 6 mg/dL (7-18); CALCIUM 9.9 MG/DL (8.5-10.1); CARBON DIOXIDE 30 MMOL/L (21-32); CHLORIDE 103 MMOL/L (98-107); CREATININE 0.8 MG/DL (0.55-1.30); POTASSIUM 3.2 MMOL/L (3.5-5.1); SODIUM 142 MMOL/L (136-145)
[2018-12-02 13:57] LABS: APPEARANCE,URINE CLEAR; BILIRUBIN, URINE NEGATIVE (NEGATIVE); COLOR,URINE PALE YELLOW; GLUCOSE, URINE (UA) NEGATIVE (NEGATIVE); KETONES,URINE NEGATIVE (NEGATIVE); LEUKOCYTE ESTERASE ,URINE NEGATIVE (NEGATIVE); NITRITE,URINE NEGATIVE (NEGATIVE); PH,URINE 6 (4.5-8.0); PROTEIN,URINE NEGATIVE (NEGATIVE); UROBILINOGEN,URINE NORMAL MG/DL (0.0-1.0)
[2018-12-02 14:03] LABS: ALANINE AMINOTRANSFERASE 32 U/L (12-78); ALBUMIN 3.8 G/DL (3.4-5.0); ALBUMIN/GLOBULIN RATIO 0.8 (1.0-2.7); ALKALINE PHOSPHATASE 113 U/L (46-116); ASPARTATE AMINO TRANSFERASE 26 U/L (15-37); BILIRUBIN,TOTAL 0.4 MG/DL (0.2-1.0); CREATINE KINASE 255 U/L (26-308)
--- NOTE | 2018-12-02 14:07 | Diagnostic Imaging Report ---
Indication: Cough Technique: One view of the chest Comparison: 11/10/2016 Findings: Better inspiration currently. There is questionably a 2 cm nodule in the right upper lobe projecting over the anterior first rib, not evident previously. There may be some linear scarring in the right suprahilar region. Lungs and pleural spaces are otherwise clear. Heart size is normal. Impression: Questionable 2 cm right upper lobe nodule. Consider CT for further evaluation. No acute process otherwise
[2018-12-02] MEDS ORDERED: guaiFENesin w/Codeine 5ml Liq ud ORAL PRN (14:30)
[2018-12-02] MEDS ORDERED: Azithromycin 500 MG in D5W 275 ML IVPB ONE (15:45)
[2018-12-02] MEDS ORDERED: Tetanus/Diptheria/Pertussis IM ONE (16:00)
[2018-12-02 16:30] VITALS: BP 135/90
--- NOTE | 2018-12-02 16:35 | NUR ---
ED Nurse Note: pt is admitted to the hospital, report given to lou johnson.
[2018-12-02] MEDS ORDERED: Lidocaine 1% MPF 10mg/ml 5ml HHN ONE (17:00)
[2018-12-02 17:30] VITALS: BP 131/89
[2018-12-02] MEDS ORDERED: guaiFENesin 100mg/5ml Liq ud ORAL PRN ×2 (18:00→18:15)
--- NOTE | 2018-12-02 18:30 | NUR ---
NURSE NOTES: Received pt from MANGO LOW in ER at 1715. Pt is alert and orient x4. pt has NC 2LMP. Pt is coughing pain full. MD is aware. pt has intact iv access RAC 22G SL. Dr MEDEROS called and given admission orders, all noted and carried out. pt is coughing, iven cough syrup as order and breathing treatment as order. pt's mother in at bed side. pt consumed 80% of dinned and tolerate well. pt has fever, MD is aware and given Tylenol as order. skin is intact. all needs attended, bed is locked and is in the lowest position, call light within easy reach. will continue to monitor.
[2018-12-02] MEDS: Solu-MEDROL 40mg Inj IVP SCH (18:33)
--- NOTE | 2018-12-02 19:12 | NUR ---
CASE MANAGEMENT: REVIEW 68/F BIBA FROM HOME CC: COUGH . WHEEZING SI: COPD EXACERBATION T 100.5 HR 110 RR 24 BP 155/107 SAT 92% NC/2L K 3.2 BUN 6 IS: NS IVF BOLUS X1 SOLU MEDROL IV X1 ATROVENT HHN X1 ALBUTEROL HHN X1 AZITHROMYCIN IV X1 Tdap VACCINE IM X1 PATIENT ADMITTED TO MED/SURG UNIT 12/02/2018 DCP: PATIENT IS FROM HOME
[2018-12-02] MEDS: Albuterol/Ipratropium 3ml neb HHN SCH ×2 (19:13→23:12)
--- NOTE | 2018-12-02 19:30 | NUR ---
HAND-OFF: Report given to MANGO MONGE. Addendum: 12/02/18 at 2034 by Violeta Castellanos RN ERROR HAND-OFF: Report given to MANGO WATSON.
[2018-12-02 20:00] VITALS: BP 117/62
--- NOTE | 2018-12-02 20:09 | NUR ---
NURSE NOTES: Pt is received from MANGO Mcdaniel. Pt is a new admit to the floor. Pt is in bed, awake, alert and ambulatory. Pt is on 2L n/c. O2 sat at 94-95%. No SOB noted. Breathing treatment given by RT. Pt is noted to have painful cough. Pt has a visitor by bedside. Pt is oriented to the unit. Bed locked low in position,side rails up and call light within reach. Pt is instructed to call for assistance before getting out of bed. Pt will be monitored.
[2018-12-02] MEDS: HYDROcodone/Acetamin 5/325 tab ORAL PRN (20:48)
[2018-12-02] MEDS: Heparin 5000 units/ml inj SUBQ SCH (20:52)
--- NOTE | 2018-12-02 20:52 | NUR ---
NURSE NOTES: KCL Tab 20mEq PO given for K+ 3.[address] Arnold.
--- NOTE | 2018-12-02 22:30 | Pulmonology Progress Note ---
Assessment/Plan Assessment/Plan Pulmonary Consultation HPI Patient with history of Asthma, recent episode of sinusitis, Hypothyroidism, recently was seen at [facility] with Asthma exacerbation. She was treated in the waiting room with breathing treatments. Currently she's having coughing and dyspnea and wheezing. Has had prednisone in the past. 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 Azithromycin CT chest Laboratory Tests Test 12/02/18 13:04 White Blood Count 5.0 K/UL (4.8-10.8) Red Blood Count 4.75 M/UL (4.20-5.40) Hemoglobin 13.7 G/DL (12.0-16.0) Hematocrit 40.4 % (37.0-47.0) Mean Corpuscular Volume 85 FL (80-99) Mean Corpuscular Hemoglobin 28.8 PG (27.0-31.0) Mean Corpuscular Hemoglobin Concent 33.8 G/DL (32.0-36.0) Red Cell Distribution Width 12.6 % (11.6-14.8) Platelet Count 248 K/UL (150-450) Mean Platelet Volume 7.2 FL (6.5-10.1) Neutrophils (%) (Auto) 59.6 % (45.0-75.0) Lymphocytes (%) (Auto) 24.2 % (20.0-45.0) Monocytes (%) (Auto) 10.3 % (1.0-10.0) H Eosinophils (%) (Auto) 4.9 % (0.0-3.0) H Basophils (%) (Auto) 1.0 % (0.0-2.0) Prothrombin Time 10.0 SEC (9.30-11.50) Prothrombin Time INR 0.9 (0.9-1.1) PTT 27 SEC (23-33) Urine Color Pale yellow Urine Appearance Clear Urine pH 6 (4.5-8.0) Urine Specific [place] 1.010 (1.005-1.035) Urine Protein Negative (NEGATIVE) Urine Glucose (UA) Negative (NEGATIVE) Urine Ketones Negative (NEGATIVE) Urine Blood 3+ (NEGATIVE) H Urine Nitrite Negative (NEGATIVE) Urine Bilirubin Negative (NEGATIVE) Urine Urobilinogen Normal MG/DL (0.0-1.0) Urine Leukocyte Esterase Negative (NEGATIVE) Urine RBC 2-4 /HPF (0 - 2) H Urine WBC 0-2 /HPF (0 - 2) Urine Squamous Epithelial Cells Occasional /LPF Urine Bacteria Occasional /HPF (NONE) Sodium Level 142 MMOL/L (136-145) Potassium Level 3.2 MMOL/L (3.5-5.1) L Chloride Level 103 MMOL/L (98-107) Carbon Dioxide Level 30 MMOL/L (21-32) Anion Gap 10 mmol/L (5-15) Blood Urea Nitrogen 6 mg/dL (7-18) L Creatinine 0.8 MG/DL (0.55-1.30) Estimate Glomerular Filtration Rate > 60 mL/min (>60) Glucose Level 105 MG/DL (74-106) Lactic Acid Level 1.40 mmol/L (0.4-2.0) Calcium Level 9.9 MG/DL (8.5-10.1) Total Bilirubin 0.4 MG/DL (0.2-1.0) Aspartate Amino Transferase (AST) 26 U/L (15-37) Alanine Aminotransferase (ALT) 32 U/L (12-78) Alkaline Phosphatase 113 U/L (46-116) Total Creatine Kinase 255 U/L (26-308) Pro-B-Type Natriuretic Peptide 111 pg/mL (0-125) Total Protein 8.4 G/DL (6.4-8.2) H Albumin 3.8 G/DL (3.4-5.0) Globulin 4.6 g/dL Albumin/Globulin Ratio 0.8 (1.0-2.7) L Microbiology Date/Time Source Procedure Growth Status 12/02/18 13:04 Nasal Nares Influenza Types A,B Antigen (NATHANAEL) - Final Complete EKG: Rate: normal Rhythm: NSR ST Segments: no acute changes Chest X-Ray: Questionable nodule RUL Subjective ROS Limited/Unobtainable: No Allergies: Coded Allergies: No Known Allergies (Unverified , 11/07/16) Objective Last 24 Hour Vital Signs Date Time Temp Pulse Resp B/P (MAP) Pulse Ox O2 Delivery O2 Flow Rate FiO2 12/02/18 19:42 Nasal Cannula 2.0 12/02/18 19:23 102 20 97 Nasal Cannula 2.0 28 12/02/18 19:13 94 Nasal Cannula 2.0 28 12/02/18 19:13 96 20 94 Nasal Cannula 2.0 28 12/02/18 19:13 Nasal Cannula 2.0 28 12/02/18 19:01 99.5 12/02/18 17:30 100.5 98 20 131/89 (103) 94 12/02/18 16:35 98.7 109 24 135/90 92 Nasal Cannula 2.0 28 12/02/18 16:30 109 24 135/90 92 Nasal Cannula 2.0 12/02/18 14:18 95 22 100 Nasal Cannula 2.0 28 12/02/18 14:11 98.7 92 20 97 Nasal Cannula 2.0 28 12/02/18 14:11 92 20 Nasal Cannula 2.0 28 12/02/18 14:07 92 20 97 Nasal Cannula 2.0 28 12/02/18 13:36 90 22 Nasal Cannula 2.0 28 12/02/18 13:35 105 20 99 Nasal Cannula 2.0 28 12/02/18 12:40 97.9 110 20 155/107 92 Room Air Microbiology Date/Time Source Procedure Growth Status 12/02/18 13:04 Nasal Nares Influenza Types A,B Antigen (NATHANAEL) - Final Complete Laboratory Tests 12/02/18 13:04: White Blood Count 5.0, Red Blood Count 4.75, Hemoglobin 13.7, Hematocrit 40.4, Mean Corpuscular Volume 85, Mean Corpuscular Hemoglobin 28.8, Mean Corpuscular Hemoglobin Concent 33.8, Red Cell Distribution Width 12.6, Platelet Count 248, Mean Platelet Volume 7.2, Neutrophils (%) (Auto) 59.6, Lymphocytes (%) (Auto) 24.2, Monocytes (%) (Auto) 10.3H, Eosinophils (%) (Auto) 4.9H, Basophils (%) ( Auto) 1.0, Prothrombin Time 10.0, Prothromb Time International Ratio 0.9, Activated Partial Thromboplast Time 27, Urine Color Pale yellow, Urine Appearance Clear, Urine pH 6, Urine Specific Victor 1.010, Urine Protein Negative, Urine Glucose (UA) Negative, Urine Ketones Negative, Urine Blood 3+H, Urine Nitrite Negative, Urine Bilirubin Negative, Urine Urobilinogen Normal, Urine Leukocyte Esterase Negative, Urine RBC 2-4H, Urine WBC 0-2, Urine Squamous Epithelial Cells Occasional, Urine Bacteria Occasional, Sodium Level 142, Potassium Level 3.2L, Chloride Level 103, Carbon Dioxide Level 30, Anion Gap 10, Blood Urea Nitrogen 6L, Creatinine 0.8, Estimat Glomerular Filtration Rate > 60, Glucose Level 105, Lactic Acid Level 1.40, Calcium Level 9.9, Total Bilirubin 0.4, Aspartate Amino Transf (AST/SGOT) 26, Alanine Aminotransferase ( ALT/SGPT) 32, Alkaline Phosphatase 113, Total Creatine Kinase 255, Pro-B-Type Natriuretic Peptide 111, Total Protein 8.4H, Albumin 3.8, Globulin 4.6, Albumin/ Globulin Ratio 0.8L Current Medications Medications (Trade) Dose Ordered Sig/Reny Route PRN Reason Start Time Stop Time Status Last Admin Dose Admin Acetaminophen (Tylenol) 650 mg Q6H PRN ORAL Mild and modePain/Temp > 100.5 12/02/18 18:00 01/01/19 17:59 12/02/18 18:31 Acetaminophen/ Hydrocodone Bitart ([place] 5/325) 1 tab Q6H PRN ORAL For severe Pain 12/02/18 18:00 12/09/18 17:59 12/02/18 20:48 Albuterol/ Ipratropium (Albuterol/ Ipratropium) 3 ml Q4HRT HHN 12/02/18 19:00 12/07/18 18:59 12/02/18 19:13 Azithromycin (Zithromax) 500 mg DAILY ORAL 12/03/18 09:00 12/10/18 08:59 Carisoprodol (Soma) 350 mg Q6H PRN ORAL MUSCLE SPASM 12/02/18 19:30 01/01/19 19:29 Guaifenesin/ Dextromethorphan (Robitussin DM Syrup) 10 ml Q6H PRN ORAL For Cough 12/02/18 20:30 01/01/19 20:29 Heparin Sodium (Porcine) (Heparin 5000 units/ml) 5,000 units EVERY 12 HOURS SUBQ 12/02/18 21:00 01/01/19 20:59 12/02/18 20:52 Levothyroxine Sodium (Synthroid) 25 mcg DAILY@0630 ORAL 12/03/18 06:30 01/02/19 06:29 Liothyronine Sodium (Cytomel) 5 mcg DAILY ORAL 12/03/18 09:00 01/02/19 08:59 Methylprednisolone Sodium Succinate (Solu-MEDROL) 40 mg EVERY 6 HOURS IVP 12/02/18 18:06 01/01/19 18:05 12/02/18 18:33 Andrzej Arnold MD Dec 02, 2018 22:30
[2018-12-03] VITALS: BP 119/70
--- NOTE | 2018-12-03 | NUR ---
NURSE NOTES: Viral culture sent to lab. Pt's cough was better after Robitussin DM. Pt is placed on Droplet precaution per Dr. Garcia'S order. Specimen container given to patient to collect sputum for culture.
[2018-12-03] MEDS: Guaifenesin/DM 10ml syrup ORAL PRN ×2 (00:09→06:42)
[2018-12-03] MEDS: Solu-MEDROL 40mg Inj IVP SCH ×4 (00:09→17:08)
[2018-12-03] MEDS: Albuterol/Ipratropium 3ml neb HHN SCH ×6 (03:25→23:08)
[2018-12-03 04:00] VITALS: BP 107/73
[2018-12-03] MEDS: Levothyroxine 25mcg tab ORAL SCH (06:42)
--- NOTE | 2018-12-03 07:00 | NUR ---
NURSE NOTES: Pt is concerned about her car being left over at [facility]. Security was contacted to check on her car.
--- NOTE | 2018-12-03 07:15 | NUR ---
HAND-OFF: Report given to MANGO Mcdaniel. Informed Adion to send sputum sample to lab for culture.
--- NOTE | 2018-12-03 07:30 | NUR ---
NURSE NOTES: Received pt from RN SHIRLEY. Pt is alert and orient x4. pt has NC 2LMP. Pt is coughing. pt has intact iv access RAC 22G SL. all needs attended, bed is locked and is in the lowest position, call light within easy reach. will continue to monitor.
[2018-12-03 07:34] LABS: BASOPHILS % (AUTO) 0.4 % (0.0-2.0); HEMATOCRIT 35.5 % (37.0-47.0); HEMOGLOBIN 12.3 G/DL (12.0-16.0); LYMPHOCYTES % (AUTO) 14.5 % (20.0-45.0); MEAN CORPUSCULAR VOLUME 85 FL (80-99); MONOCYTES % (AUTO) 4.2 % (1.0-10.0); NEUTROPHILS % (AUTO) 80.8 % (45.0-75.0); PLATELET COUNT 239 K/UL (150-450); RED BLOOD COUNT 4.19 M/UL (4.20-5.40); RED CELL DISTRIBUTION WIDTH 12.8 % (11.6-14.8); WHITE BLOOD COUNT 9.4 K/UL (4.8-10.8)
[2018-12-03 08:00] VITALS: BP 124/72
[2018-12-03 08:11] LABS: ANION GAP 10 mmol/L (5-15); BLOOD UREA NITROGEN 9 mg/dL (7-18); CALCIUM 9.1 MG/DL (8.5-10.1); CARBON DIOXIDE 27 MMOL/L (21-32); CHLORIDE 104 MMOL/L (98-107); CREATININE 0.8 MG/DL (0.55-1.30); POTASSIUM 3.8 MMOL/L (3.5-5.1); SODIUM 141 MMOL/L (136-145)
[2018-12-03] MEDS: Liothyronine 5mcg tab ORAL SCH (08:28)
[2018-12-03] MEDS: Azithromycin 250mg tab ORAL SCH (08:28)
[2018-12-03] MEDS: HYDROcodone/Acetamin 5/325 tab ORAL PRN ×2 (08:29→20:24)
--- NOTE | 2018-12-03 08:30 | NUR ---
NURSE NOTES: sputum culture collected, sent to lab, wairing for result. will continue to monitor.
[2018-12-03] MEDS: Heparin 5000 units/ml inj SUBQ SCH ×2 (08:38→20:16)
--- NOTE | 2018-12-03 10:04 | Diagnostic Imaging Report ---
EXAM: CT Chest Without Intravenous Contrast CLINICAL HISTORY: COUGH TECHNIQUE: Axial computed tomography images of the chest without intravenous contrast. CTDI is 12.56 mGy and DLP is 440 mGy-cm. One or more of the following dose reduction techniques were used: automated exposure control, adjustment of the mA and/or kV according to patient size, use of iterative reconstruction technique. Coronal and sagittal images were obtained and reviewed. COMPARISON: Chest x-ray dated 12/02/18 FINDINGS: Lungs: Mild diffuse bronchial wall thickening, suggesting bronchitis. Scattered foci of peribronchial groundglass haziness in the right upper lobe and subtle tree-in-bud groundglass nodularity in the left lower lobe, likely early pneumonitis. Pleural space: Unremarkable. No pneumothorax. No significant effusion. Heart: Unremarkable. No cardiomegaly. No significant pericardial effusion. Bones/joints: Unremarkable. No acute fracture. No dislocation. Soft tissues: Unremarkable. Vasculature: Unremarkable. No thoracic aortic aneurysm. Lymph nodes: Subcentimeter mediastinal lymph nodes, likely reactive. Kidneys and ureters: 2.9 cm simple-appearing cyst in the left mid kidney. IMPRESSION: 1. Mild diffuse bronchial wall thickening, suggesting bronchitis. 2. Scattered foci of peribronchial groundglass haziness in the right upper lobe and subtle tree-in-bud groundglass nodularity in the left lower lobe, likely early infectious or inflammatory pneumonitis. Consider atypical etiologies such as viral, fungal, or mycobacterial.
--- NOTE | 2018-12-03 10:43 | NUR ---
NURSE NOTES: pt has non stop coughing, Dr MEDEROS notified, ordered Phenergan with codeine 5cc Q4HR PRN, noted and carried out. will continue to monitor.
[2018-12-03] MEDS: Promethazine/Codeine 5ml UD ORAL PRN ×3 (10:58→20:15)
--- NOTE | 2018-12-03 11:16 | History and Physical Report ---
DATE OF ADMISSION: 12/02/2018 CHIEF COMPLAINT: Shortness of breath. HISTORY OF PRESENT ILLNESS: The patient is a 68-year-old female. She has a history of asthma and hypothyroidism, presented with complaints of shortness of breath and cough. According to the patient, she was seen by her ENT approximately 10 days ago, started on Bactrim for bronchitis. Her symptoms did not improve. She continued to have worsening shortness of breath, cough, and wheezing. 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 She is now admitted for asthma exacerbation. PAST MEDICAL HISTORY: As above. PAST SURGICAL HISTORY: None. CURRENT MEDICATIONS: Reconciled and reviewed. ALLERGIES: None. FAMILY HISTORY: None. SOCIAL HISTORY: Negative for alcohol or drugs. PHYSICAL EXAMINATION: VITAL SIGNS: Temperature 98, pulse 81, respirations 18, and blood pressure 107/73. GENERAL: The patient is a well-developed, no apparent distress. HEART: Regular rate and rhythm. LUNGS: There are diffuse scant wheezes. ABDOMEN: Soft, nontender, nondistended. EXTREMITIES: Without clubbing, cyanosis, or edema. LABORATORY DATA: White count 5, hemoglobin 13, hematocrit 40. Sodium 142 and potassium was 3.2. ASSESSMENT: This is a pleasant female, admitted with complaints of shortness of breath secondary to asthma exacerbation. 1. Asthma exacerbation. 2. Hypothyroidism. PLAN: IV steroids, respiratory treatments. Continue outpatient thyroid regimen, DVT and stress ulcer prophylaxis. Moustapha George M.D. DR: KOBY JOB#: [id number] CC:
[2018-12-03 12:00] VITALS: BP 144/91
--- NOTE | 2018-12-03 15:49 | NUR ---
CERTIFIED ENDOSCOPY TECHNICIANEDITOR SI:COPD EXACERBATION VS: BP 140/80, P 89, T 98.6, RR 20, SpO2 100 on NC 2.0L O2 RBC 4.19, Hct 35.5 CXR IMPRESSION: Mild diffuse bronchial wall thickening, suggesting bronchitis. IS:[place] 5/325 1tab ALBUTEROL 3ml HHN HEPARIN SUBQ SYNTHROID 25mcg CYTOMLE 5mcg ZITHROMAX 500mg PHENERGAN WITH CODEINE 5ml MED/SURG STATUS
[2018-12-03 16:00] VITALS: BP 138/86
--- NOTE | 2018-12-03 17:28 | Pulmonology Progress Note ---
Assessment/Plan Assessment/Plan Pulmonary Consultation HPI Patient with history of Asthma, recent episode of sinusitis, Hypothyroidism, recently was seen at [facility] with Asthma exacerbation. She was treated in the waiting room with breathing treatments. Currently she's having coughing and dyspnea and wheezing. Has had prednisone in the past. Donna wheeze, still coughing CT IMPRESSION: 1. Mild diffuse bronchial wall thickening, suggesting bronchitis. 2. Scattered foci of peribronchial groundglass haziness in the right upper lobe and subtle tree-in-bud groundglass nodularity in the left lower lobe, likely early infectious or inflammatory pneumonitis. Consider atypical etiologies such as viral, fungal, or mycobacterial. Allergies: No Known Allergies Past Medical History: Asthma, recent episode of sinusitis, Hypothyroidism Social History: Denies: smoking ROS: Negative aside from above Examination: HEENT: NCAT, moist mm, JVP not elevated Chest: Bilateral wheezing Heart: HS1, HS2, RRR Abdomen: SNT, ND, no masses, no rebound Extremities: No rashes, no edema FRAMER: Intact Impression: Asthma exacerbation Recent episode of sinusitis Recent sputum cultures - Stentotrophomonas treated with Bactrim as out patient Hypothyroidism CT Chest: 1. Mild diffuse bronchial wall thickening, suggesting bronchitis. 2. Scattered foci of peribronchial groundglass haziness in the right upper lobe and subtle tree-in-bud groundglass nodularity in the left lower lobe, likely early infectious or inflammatory pneumonitis. Consider atypical etiologies such as viral, fungal, or mycobacterial. 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 Azithromycin Await cultures Influenza negative Laboratory Tests Test 12/02/18 13:04 White Blood Count 5.0 K/UL (4.8-10.8) Red Blood Count 4.75 M/UL (4.20-5.40) Hemoglobin 13.7 G/DL (12.0-16.0) Hematocrit 40.4 % (37.0-47.0) Mean Corpuscular Volume 85 FL (80-99) Mean Corpuscular Hemoglobin 28.8 PG (27.0-31.0) Mean Corpuscular Hemoglobin Concent 33.8 G/DL (32.0-36.0) Red Cell Distribution Width 12.6 % (11.6-14.8) Platelet Count 248 K/UL (150-450) Mean Platelet Volume 7.2 FL (6.5-10.1) Neutrophils (%) (Auto) 59.6 % (45.0-75.0) Lymphocytes (%) (Auto) 24.2 % (20.0-45.0) Monocytes (%) (Auto) 10.3 % (1.0-10.0) H Eosinophils (%) (Auto) 4.9 % (0.0-3.0) H Basophils (%) (Auto) 1.0 % (0.0-2.0) Prothrombin Time 10.0 SEC (9.30-11.50) Prothrombin Time INR 0.9 (0.9-1.1) PTT 27 SEC (23-33) Urine Color Pale yellow Urine Appearance Clear Urine pH 6 (4.5-8.0) Urine Specific [place] 1.010 (1.005-1.035) Urine Protein Negative (NEGATIVE) Urine Glucose (UA) Negative (NEGATIVE) Urine Ketones Negative (NEGATIVE) Urine Blood 3+ (NEGATIVE) H Urine Nitrite Negative (NEGATIVE) Urine Bilirubin Negative (NEGATIVE) Urine Urobilinogen Normal MG/DL (0.0-1.0) Urine Leukocyte Esterase Negative (NEGATIVE) Urine RBC 2-4 /HPF (0 - 2) H Urine WBC 0-2 /HPF (0 - 2) Urine Squamous Epithelial Cells Occasional /LPF Urine Bacteria Occasional /HPF (NONE) Sodium Level 142 MMOL/L (136-145) Potassium Level 3.2 MMOL/L (3.5-5.1) L Chloride Level 103 MMOL/L (98-107) Carbon Dioxide Level 30 MMOL/L (21-32) Anion Gap 10 mmol/L (5-15) Blood Urea Nitrogen 6 mg/dL (7-18) L Creatinine 0.8 MG/DL (0.55-1.30) Estimate Glomerular Filtration Rate > 60 mL/min (>60) Glucose Level 105 MG/DL (74-106) Lactic Acid Level 1.40 mmol/L (0.4-2.0) Calcium Level 9.9 MG/DL (8.5-10.1) Total Bilirubin 0.4 MG/DL (0.2-1.0) Aspartate Amino Transferase (AST) 26 U/L (15-37) Alanine Aminotransferase (ALT) 32 U/L (12-78) Alkaline Phosphatase 113 U/L (46-116) Total Creatine Kinase 255 U/L (26-308) Pro-B-Type Natriuretic Peptide 111 pg/mL (0-125) Total Protein 8.4 G/DL (6.4-8.2) H Albumin 3.8 G/DL (3.4-5.0) Globulin 4.6 g/dL Albumin/Globulin Ratio 0.8 (1.0-2.7) L Microbiology Date/Time Source Procedure Growth Status 12/02/18 13:04 Nasal Nares Influenza Types A,B Antigen (NATHANAEL) - Final Complete EKG: Rate: normal Rhythm: NSR ST Segments: no acute changes Chest X-Ray: Questionable nodule RUL Subjective ROS Limited/Unobtainable: No Respiratory: Reports: productive cough Allergies: Coded Allergies: No Known Allergies (Unverified , 11/07/16) Objective Last 24 Hour Vital Signs Date Time Temp Pulse Resp B/P (MAP) Pulse Ox O2 Delivery O2 Flow Rate FiO2 12/03/18 16:00 98.5 100 20 138/86 (103) 95 12/03/18 15:20 90 20 98 Nasal Cannula 2.0 28 12/03/18 15:08 84 20 98 Nasal Cannula 2.0 28 12/03/18 12:00 98.7 86 20 144/91 (108) 94 12/03/18 11:11 88 18 100 Nasal Cannula 2.0 28 12/03/18 10:39 77 16 98 Nasal Cannula 2.0 28 12/03/18 09:00 Nasal Cannula 2.0 12/03/18 08:59 98.3 12/03/18 08:00 98.3 93 19 124/72 (89) 97 12/03/18 06:51 82 18 99 Nasal Cannula 2.0 28 12/03/18 06:37 Nasal Cannula 2.0 28 12/03/18 06:37 98 Nasal Cannula 2.0 28 12/03/18 06:37 64 16 98 Nasal Cannula 2.0 28 12/03/18 04:00 98.1 81 18 107/73 (84) 98 12/03/18 03:35 79 16 99 Nasal Cannula 2.0 28 12/03/18 03:25 78 16 97 Nasal Cannula 2.0 28 12/03/18 00:00 97.3 89 18 119/70 (86) 95 12/02/18 23:22 88 18 99 Nasal Cannula 2.0 28 12/02/18 23:12 85 18 96 Nasal Cannula 2.0 28 12/02/18 21:00 Nasal Cannula 2.0 12/02/18 20:00 98.5 99 20 117/62 (80) 98 12/02/18 19:42 Nasal Cannula 2.0 12/02/18 19:23 102 20 97 Nasal Cannula 2.0 28 12/02/18 19:13 94 Nasal Cannula 2.0 28 12/02/18 19:13 96 20 94 Nasal Cannula 2.0 28 12/02/18 19:13 Nasal Cannula 2.0 28 12/02/18 19:01 99.5 12/02/18 17:30 100.5 98 20 131/89 (103) 94 Intake and Output 12/02/18 12/03/18 19:00 07:00 Intake Total 2275 ml Balance 2275 ml Intake IV Total 2275 ml # Voids 2 2 # Bowel Movements 1 Microbiology Date/Time Source Procedure Growth Status 12/02/18 13:04 Nasal Nares Influenza Types A,B Antigen (NATHANAEL) - Final Complete Laboratory Tests 12/03/18 06:39: White Blood Count 9.4#, Red Blood Count 4.19L, Hemoglobin 12.3, Hematocrit 35.5L , Mean Corpuscular Volume 85, Mean Corpuscular Hemoglobin 29.2, Mean Corpuscular Hemoglobin Concent 34.5, Red Cell Distribution Width 12.8, Platelet Count 239, Mean Platelet Volume 7.5, Neutrophils (%) (Auto) 80.8H, Lymphocytes ( %) (Auto) 14.5L, Monocytes (%) (Auto) 4.2, Eosinophils (%) (Auto) 0.0, Basophils (%) (Auto) 0.4, Sodium Level 141, Potassium Level 3.8, Chloride Level 104, Carbon Dioxide Level 27, Anion Gap 10, Blood Urea Nitrogen 9, Creatinine 0.8, Estimat Glomerular Filtration Rate > 60, Glucose Level 133H, Calcium Level 9.1 Current Medications Medications (Trade) Dose Ordered Sig/Reny Route PRN Reason Start Time Stop Time Status Last Admin Dose Admin Acetaminophen (Tylenol) 650 mg Q6H PRN ORAL Mild and modePain/Temp > 100.5 12/02/18 18:00 01/01/19 17:59 12/02/18 18:31 Acetaminophen/ Hydrocodone Bitart ([place] 5/325) 1 tab Q6H PRN ORAL For severe Pain 12/02/18 18:00 12/09/18 17:59 12/03/18 08:29 Albuterol/ Ipratropium (Albuterol/ Ipratropium) 3 ml Q4HRT HHN 12/02/18 19:00 12/07/18 18:59 12/03/18 15:08 Azithromycin (Zithromax) 500 mg DAILY ORAL 12/03/18 09:00 12/10/18 08:59 12/03/18 08:28 Carisoprodol (Soma) 350 mg Q6H PRN ORAL MUSCLE SPASM 12/02/18 19:30 01/01/19 19:29 12/03/18 17:09 Guaifenesin/ Dextromethorphan (Robitussin DM Syrup) 10 ml Q6H PRN ORAL For Cough 12/02/18 20:30 01/01/19 20:29 12/03/18 06:42 Heparin Sodium (Porcine) (Heparin 5000 units/ml) 5,000 units EVERY 12 HOURS SUBQ 12/02/18 21:00 01/01/19 20:59 12/03/18 08:38 Levothyroxine Sodium (Synthroid) 25 mcg DAILY@0630 ORAL 12/03/18 06:30 01/02/19 06:29 12/03/18 06:42 Liothyronine Sodium (Cytomel) 5 mcg DAILY ORAL 12/03/18 09:00 01/02/19 08:59 12/03/18 08:28 Methylprednisolone Sodium Succinate (Solu-MEDROL) 40 mg EVERY 6 HOURS IVP 12/02/18 18:06 01/01/19 18:05 12/03/18 17:08 Promethazine HCl/ Codeine (Phenergan with Codeine) 5 ml Q4H PRN ORAL For Cough 12/03/18 10:45 01/02/19 10:44 12/03/18 15:02 Andrzej Arnold MD Dec 03, 2018 17:28
--- NOTE | 2018-12-03 19:20 | NUR ---
HAND-OFF: Report given to MANGO DAUGHERTY. Addendum: 12/03/18 at 1921 by Violeta Castellanos RN ERROR HAND-OFF: Report given to MANGO PORTILLO
--- NOTE | 2018-12-03 19:23 | NUR ---
NURSE NOTES: Received pt alert and orient x4. pt has NC 2L on. Pt is coughing incessantly. pt has intact iv access RAC 22G SL. all needs attended, bed is locked and is in the lowest position, call light within reach. will continue to monitor.
[2018-12-03 20:00] VITALS: BP 140/80
[2018-12-03] MEDS ORDERED: Cefepime HCl 1 GM in D5W 55 ML IVPB SCH (21:00)
[2018-12-04] VITALS: BP 108/66
[2018-12-04] MEDS: Solu-MEDROL 40mg Inj IVP SCH ×4 (00:29→19:18)
[2018-12-04] MEDS: Albuterol/Ipratropium 3ml neb HHN SCH ×6 (03:10→23:16)
[2018-12-04 04:00] VITALS: BP 112/76
[2018-12-04] MEDS: Levothyroxine 25mcg tab ORAL SCH (05:55)
[2018-12-04] MEDS: Promethazine/Codeine 5ml UD ORAL PRN ×3 (06:22→20:28)
--- NOTE | 2018-12-04 07:40 | NUR ---
NURSE NOTES: WALKING ROUNDS DONE WITH OUTGOING RN. PATIENT AWAKE IN BED HAVING BREAKFAST. QUESTIONS ANSWERED, NEEDS MET AT THIS TIME.DISCUSSED PLAN OF CARE FOR THE DAY. VERBALIZED UNDERSTANDING.BED IN LOW AND LOCKED POSITION. CALL LIGHT WITHIN REACH.
--- NOTE | 2018-12-04 07:50 | NUR ---
HAND-OFF: Report given to MANGO Arredondo.
[2018-12-04 08:00] VITALS: BP 131/86
[2018-12-04] MEDS: Heparin 5000 units/ml inj SUBQ SCH ×2 (09:00→20:25)
[2018-12-04] MEDS: Azithromycin 250mg tab ORAL SCH (09:30)
[2018-12-04] MEDS: Liothyronine 5mcg tab ORAL SCH (09:30)
[2018-12-04] MEDS: Cefepime HCl 1 GM in D5W 55 ML IVPB SCH (09:31)
--- NOTE | 2018-12-04 10:26 | General Progress Note ---
Assessment/Plan Problem List: (1) Bronchitis ICD Codes: J40 - Bronchitis, not specified as acute or chronic SNOMED: 67327431 (2) PNA (pneumonia) ICD Codes: J18.9 - Pneumonia, unspecified organism SNOMED: 739888627 (3) COPD exacerbation ICD Codes: J44.1 - Chronic obstructive pulmonary disease with (acute) exacerbation SNOMED: 225942459 Subjective ROS Limited/Unobtainable: No Constitutional: Reports: malaise, weakness HEENT: Reports: no symptoms Cardiovascular: Reports: no symptoms Respiratory: Reports: cough Gastrointestinal/Abdominal: Reports: no symptoms Genitourinary: Reports: no symptoms Neurologic/Psychiatric: Reports: no symptoms Endocrine: Reports: no symptoms Hematologic/Lymphatic: Reports: no symptoms Allergies: Coded Allergies: No Known Allergies (Unverified , 11/07/16) All Systems: reviewed and negative except above Subjective cant stop coughing. ct with bronchitis Objective Last 24 Hour Vital Signs Date Time Temp Pulse Resp B/P (MAP) Pulse Ox O2 Delivery O2 Flow Rate FiO2 12/04/18 06:55 88 18 100 Nasal Cannula 2.0 28 12/04/18 06:42 Nasal Cannula 2.0 28 12/04/18 06:42 97 Nasal Cannula 2.0 28 12/04/18 06:42 68 18 97 Nasal Cannula 2.0 28 12/04/18 04:00 98.0 69 18 112/76 (88) 95 12/04/18 03:23 80 20 100 Nasal Cannula 2.0 28 12/04/18 03:11 76 20 97 Nasal Cannula 2.0 28 12/04/18 00:00 98.2 76 19 108/66 (80) 95 12/03/18 23:18 76 20 100 Nasal Cannula 2.0 28 12/03/18 23:08 72 20 96 Nasal Cannula 2.0 28 12/03/18 20:02 89 20 99 Nasal Cannula 2.0 28 12/03/18 20:00 Nasal Cannula 2.0 12/03/18 20:00 98.6 89 20 140/80 (100) 95 12/03/18 19:54 97 Nasal Cannula 2.0 28 12/03/18 19:54 Nasal Cannula 2.0 28 12/03/18 19:52 79 20 97 Nasal Cannula 2.0 28 12/03/18 17:39 98.5 12/03/18 16:00 98.5 100 20 138/86 (103) 95 12/03/18 15:20 90 20 98 Nasal Cannula 2.0 28 12/03/18 15:08 84 20 98 Nasal Cannula 2.0 28 12/03/18 12:00 98.7 86 20 144/91 (108) 94 12/03/18 11:11 88 18 100 Nasal Cannula 2.0 28 12/03/18 10:39 77 16 98 Nasal Cannula 2.0 28 Intake and Output 12/03/18 12/04/18 18:59 06:59 Intake Total 1100 ml 260 ml Balance 1100 ml 260 ml Intake Oral 1100 ml 260 ml # Voids 5 2 Height (Feet): 5 Height (Inches): 4.00 Weight (Pounds): 130 General Appearance: WD/WN, alert Neck: supple Cardiovascular: regular rhythm Respiratory/Chest: expiratory wheezing Abdomen: normal bowel sounds, non tender, soft Edema: no edema noted Arm (L), no edema noted Arm (R), no edema noted Leg (L), no edema noted Leg (R), no edema noted Pedal (L), no edema noted Pedal (R), no edema noted Generalized Moustapha George MD Dec 04, 2018 10:26
[2018-12-04 12:00] VITALS: BP 117/72
--- NOTE | 2018-12-04 12:30 | NUR ---
NURSE NOTES: PATIENT SEEN BY PCP. NEW ORDERS RECEIVED. PATIENT STILL HAS COUGH WITH PRODUCTION. RECEIVING COUG SUPPRESSANTS AND HHN ORDERED. SOB WITH INCREASED ACTIVITY. AWARE. VSS.[email or web address].
[2018-12-04] MEDS: Benzonatate 100mg Perles ORAL SCH ×2 (12:37→18:00)
[2018-12-04] MEDS: Flonase Nasal Inhaler 16gm NASAL SCH ×2 (14:29→19:19)
--- NOTE | 2018-12-04 15:56 | NUR ---
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
[2018-12-04 16:00] VITALS: BP 127/81
[2018-12-04] MEDS ORDERED: NS 275ml ONE (16:45)
[2018-12-04] MEDS ORDERED: Tubing IV Secondary IV ONE (16:45)
--- NOTE | 2018-12-04 18:35 | Pulmonology Progress Note ---
Assessment/Plan Assessment/Plan Pulmonary Progress Note HPI Patient with history of Asthma, recent episode of sinusitis, Hypothyroidism, recently was seen at [facility] with Asthma exacerbation. She was treated in the waiting room with breathing treatments. Currently she's having coughing and dyspnea and wheezing. Has had prednisone in the past. Donna wheeze, still coughing CT IMPRESSION: 1. Mild diffuse bronchial wall thickening, suggesting bronchitis. 2. Scattered foci of peribronchial groundglass haziness in the right upper lobe and subtle tree-in-bud groundglass nodularity in the left lower lobe, likely early infectious or inflammatory pneumonitis. Consider atypical etiologies such as viral, fungal, or mycobacterial. 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 Mild diffuse bronchial wall thickening, suggesting bronchitis. 2. Scattered foci of peribronchial groundglass haziness in the right upper lobe and subtle tree-in-bud groundglass nodularity in the left lower lobe, likely early infectious or inflammatory pneumonitis. Consider atypical etiologies such as viral, fungal, or mycobacterial. 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 Cefepime, Azithromycin Await cultures Influenza negative Laboratory Tests Test 12/02/18 13:04 White Blood Count 5.0 K/UL (4.8-10.8) Red Blood Count 4.75 M/UL (4.20-5.40) Hemoglobin 13.7 G/DL (12.0-16.0) Hematocrit 40.4 % (37.0-47.0) Mean Corpuscular Volume 85 FL (80-99) Mean Corpuscular Hemoglobin 28.8 PG (27.0-31.0) Mean Corpuscular Hemoglobin Concent 33.8 G/DL (32.0-36.0) Red Cell Distribution Width 12.6 % (11.6-14.8) Platelet Count 248 K/UL (150-450) Mean Platelet Volume 7.2 FL (6.5-10.1) Neutrophils (%) (Auto) 59.6 % (45.0-75.0) Lymphocytes (%) (Auto) 24.2 % (20.0-45.0) Monocytes (%) (Auto) 10.3 % (1.0-10.0) H Eosinophils (%) (Auto) 4.9 % (0.0-3.0) H Basophils (%) (Auto) 1.0 % (0.0-2.0) Prothrombin Time 10.0 SEC (9.30-11.50) Prothrombin Time INR 0.9 (0.9-1.1) PTT 27 SEC (23-33) Urine Color Pale yellow Urine Appearance Clear Urine pH 6 (4.5-8.0) Urine Specific [place] 1.010 (1.005-1.035) Urine Protein Negative (NEGATIVE) Urine Glucose (UA) Negative (NEGATIVE) Urine Ketones Negative (NEGATIVE) Urine Blood 3+ (NEGATIVE) H Urine Nitrite Negative (NEGATIVE) Urine Bilirubin Negative (NEGATIVE) Urine Urobilinogen Normal MG/DL (0.0-1.0) Urine Leukocyte Esterase Negative (NEGATIVE) Urine RBC 2-4 /HPF (0 - 2) H Urine WBC 0-2 /HPF (0 - 2) Urine Squamous Epithelial Cells Occasional /LPF Urine Bacteria Occasional /HPF (NONE) Sodium Level 142 MMOL/L (136-145) Potassium Level 3.2 MMOL/L (3.5-5.1) L Chloride Level 103 MMOL/L (98-107) Carbon Dioxide Level 30 MMOL/L (21-32) Anion Gap 10 mmol/L (5-15) Blood Urea Nitrogen 6 mg/dL (7-18) L Creatinine 0.8 MG/DL (0.55-1.30) Estimate Glomerular Filtration Rate > 60 mL/min (>60) Glucose Level 105 MG/DL (74-106) Lactic Acid Level 1.40 mmol/L (0.4-2.0) Calcium Level 9.9 MG/DL (8.5-10.1) Total Bilirubin 0.4 MG/DL (0.2-1.0) Aspartate Amino Transferase (AST) 26 U/L (15-37) Alanine Aminotransferase (ALT) 32 U/L (12-78) Alkaline Phosphatase 113 U/L (46-116) Total Creatine Kinase 255 U/L (26-308) Pro-B-Type Natriuretic Peptide 111 pg/mL (0-125) Total Protein 8.4 G/DL (6.4-8.2) H Albumin 3.8 G/DL (3.4-5.0) Globulin 4.6 g/dL Albumin/Globulin Ratio 0.8 (1.0-2.7) L Microbiology Date/Time Source Procedure Growth Status 12/02/18 13:04 Nasal Nares Influenza Types A,B Antigen (NATHANAEL) - Final Complete EKG: Rate: normal Rhythm: NSR ST Segments: no acute changes Chest X-Ray: Questionable nodule RUL Subjective ROS Limited/Unobtainable: No Allergies: Coded Allergies: No Known Allergies (Unverified , 11/07/16) Objective Last 24 Hour Vital Signs Date Time Temp Pulse Resp B/P (MAP) Pulse Ox O2 Delivery O2 Flow Rate FiO2 12/04/18 16:00 98.9 79 19 127/81 (96) 96 12/04/18 15:00 98 24 97 Nasal Cannula 2.0 28 12/04/18 14:59 98.1 12/04/18 14:41 82 20 97 Nasal Cannula 2.0 28 12/04/18 12:00 98.1 76 21 117/72 (87) 96 12/04/18 11:47 98.1 12/04/18 11:02 92 22 100 Nasal Cannula 2.0 28 12/04/18 10:46 88 22 96 Nasal Cannula 2.0 28 12/04/18 09:00 Nasal Cannula 3.0 12/04/18 08:00 98.1 93 16 131/86 (101) 93 12/04/18 06:55 88 18 100 Nasal Cannula 2.0 28 12/04/18 06:42 Nasal Cannula 2.0 28 12/04/18 06:42 97 Nasal Cannula 2.0 28 12/04/18 06:42 68 18 97 Nasal Cannula 2.0 28 12/04/18 04:00 98.0 69 18 112/76 (88) 95 12/04/18 03:23 80 20 100 Nasal Cannula 2.0 28 12/04/18 03:11 76 20 97 Nasal Cannula 2.0 28 12/04/18 00:00 98.2 76 19 108/66 (80) 95 12/03/18 23:18 76 20 100 Nasal Cannula 2.0 28 12/03/18 23:08 72 20 96 Nasal Cannula 2.0 28 12/03/18 20:02 89 20 99 Nasal Cannula 2.0 28 12/03/18 20:00 Nasal Cannula 2.0 12/03/18 20:00 98.6 89 20 140/80 (100) 95 12/03/18 19:54 97 Nasal Cannula 2.0 28 12/03/18 19:54 Nasal Cannula 2.0 28 12/03/18 19:52 79 20 97 Nasal Cannula 2.0 28 Intake and Output 12/03/18 12/04/18 19:00 07:00 Intake Total 1100 ml 260 ml Balance 1100 ml 260 ml Intake Oral 1100 ml 260 ml # Voids 5 2 Microbiology Date/Time Source Procedure Growth Status 12/03/18 08:30 Sputum Gram Stain - Final Resulted 12/03/18 08:30 Sputum Sputum Culture - Preliminary NORMAL UPPER RESPIRATORY SALOME AT 24 ... Resulted 12/02/18 13:04 Nasal Nares Influenza Types A,B Antigen (NATHANAEL) - Final Complete Current Medications Medications (Trade) Dose Ordered Sig/Reny Route PRN Reason Start Time Stop Time Status Last Admin Dose Admin Acetaminophen (Tylenol) 650 mg Q6H PRN ORAL Mild and modePain/Temp > 100.5 12/02/18 18:00 01/01/19 17:59 12/04/18 14:29 Acetaminophen/ Hydrocodone Bitart ([place] 5/325) 1 tab Q6H PRN ORAL For severe Pain 12/02/18 18:00 12/09/18 17:59 12/03/18 20:24 Albuterol/ Ipratropium (Albuterol/ Ipratropium) 3 ml Q4HRT HHN 12/02/18 19:00 12/07/18 18:59 12/04/18 14:41 Azithromycin (Zithromax) 500 mg DAILY ORAL 12/03/18 09:00 12/10/18 08:59 12/04/18 09:30 Benzonatate (Tessalon Perles) 200 mg THREE TIMES A DAY ORAL 12/04/18 12:00 01/03/19 11:59 12/04/18 12:37 Carisoprodol (Soma) 350 mg Q6H PRN ORAL MUSCLE SPASM 12/02/18 19:30 01/01/19 19:29 12/04/18 11:17 Cefepime HCl 1 gm/ Dextrose 55 ml @ 110 mls/hr Q24H IVPB 12/04/18 09:00 12/11/18 08:59 12/04/18 09:31 Fluticasone Propionate (Flonase) 1 spray TWICE A DAY NASAL 12/04/18 11:30 01/03/19 11:29 12/04/18 14:29 Guaifenesin/ Dextromethorphan (Robitussin DM Syrup) 10 ml Q6H PRN ORAL For Cough 12/02/18 20:30 01/01/19 20:29 12/03/18 06:42 Heparin Sodium (Porcine) (Heparin 5000 units/ml) 5,000 units EVERY 12 HOURS SUBQ 12/02/18 21:00 01/01/19 20:59 12/03/18 20:16 Levothyroxine Sodium (Synthroid) 25 mcg DAILY@0630 ORAL 12/03/18 06:30 01/02/19 06:29 12/04/18 05:55 Liothyronine Sodium (Cytomel) 5 mcg DAILY ORAL 12/03/18 09:00 01/02/19 08:59 12/04/18 09:30 Methylprednisolone Sodium Succinate (Solu-MEDROL) 40 mg EVERY 6 HOURS IVP 12/02/18 18:06 01/01/19 18:05 12/04/18 12:37 Promethazine HCl/ Codeine (Phenergan with Codeine) 5 ml Q4H PRN ORAL For Cough 12/03/18 10:45 01/02/19 10:44 12/04/18 10:06 Andrzej Arnold MD Dec 04, 2018 18:35
--- NOTE | 2018-12-04 19:36 | NUR ---
NURSE NOTES: PATIENT AWAKE IN BED, mother- visitor at bedside. QUESTIONS ANSWERED, NEEDS MET AT THIS TIME. DISCUSSED PLAN OF CARE FOR THE evening shift. VERBALIZED UNDERSTANDING.BED IN LOW AND LOCKED POSITION, side rails x2. Pt is ambulatory with steady gait. CALL LIGHT WITHIN REACH. Will continue to monitor
--- NOTE | 2018-12-04 19:36 | NUR ---
HAND-OFF: Report given to KYLAH Locke RN.
[2018-12-04 20:00] VITALS: BP 119/70
[2018-12-04] MEDS: HYDROcodone/Acetamin 5/325 tab ORAL PRN (20:28)
[2018-12-05] VITALS: BP 120/70
[2018-12-05] MEDS: Solu-MEDROL 40mg Inj IVP SCH ×4 (00:01→20:14)
[2018-12-05] MEDS: Promethazine/Codeine 5ml UD ORAL PRN ×3 (01:17→20:14)
[2018-12-05] MEDS: Albuterol/Ipratropium 3ml neb HHN SCH ×7 (03:16→23:13)
[2018-12-05 04:10] VITALS: BP 119/73
[2018-12-05] MEDS: Levothyroxine 25mcg tab ORAL SCH (05:37)
--- NOTE | 2018-12-05 07:17 | NUR ---
HAND-OFF: Report given to MANGO Braden.
--- NOTE | 2018-12-05 07:34 | General Progress Note ---
Assessment/Plan Problem List: (1) Bronchitis ICD Codes: J40 - Bronchitis, not specified as acute or chronic SNOMED: 77003056 (2) PNA (pneumonia) ICD Codes: J18.9 - Pneumonia, unspecified organism SNOMED: 927473171 (3) COPD exacerbation ICD Codes: J44.1 - Chronic obstructive pulmonary disease with (acute) exacerbation SNOMED: 371446030 Status: stable Assessment/Plan decrease steroids add PPI iv abx dc planning tomorrow if stable Subjective ROS Limited/Unobtainable: No Constitutional: Reports: no symptoms HEENT: Reports: no symptoms Cardiovascular: Reports: no symptoms Respiratory: Reports: cough Gastrointestinal/Abdominal: Reports: no symptoms Genitourinary: Reports: no symptoms Neurologic/Psychiatric: Reports: no symptoms Endocrine: Reports: no symptoms Hematologic/Lymphatic: Reports: no symptoms Allergies: Coded Allergies: No Known Allergies (Unverified , 11/07/16) All Systems: reviewed and negative except above Subjective cant stop coughing. ct with bronchitis/pneumonitis. on iv abx. thinks she has reflux Objective Last 24 Hour Vital Signs Date Time Temp Pulse Resp B/P (MAP) Pulse Ox O2 Delivery O2 Flow Rate FiO2 12/05/18 04:10 98.0 85 19 119/73 (88) 96 12/05/18 03:26 72 18 99 Nasal Cannula 2.0 28 12/05/18 03:16 69 18 98 Nasal Cannula 2.0 28 12/05/18 00:00 97.9 80 19 120/70 (87) 97 12/04/18 23:23 74 18 99 Nasal Cannula 2.0 28 12/04/18 23:16 72 18 98 Nasal Cannula 2.0 28 12/04/18 21:00 Nasal Cannula 2.0 12/04/18 20:00 98.0 87 18 119/70 (86) 93 12/04/18 19:42 95 24 99 Nasal Cannula 2.0 28 12/04/18 19:36 Nasal Cannula 2.0 28 12/04/18 19:36 98 Nasal Cannula 2.0 28 12/04/18 19:33 96 20 98 Nasal Cannula 2.0 28 12/04/18 16:00 98.9 79 19 127/81 (96) 96 12/04/18 15:00 98 24 97 Nasal Cannula 2.0 28 12/04/18 14:59 98.1 12/04/18 14:41 82 20 97 Nasal Cannula 2.0 28 12/04/18 12:00 98.1 76 21 117/72 (87) 96 12/04/18 11:47 98.1 12/04/18 11:02 92 22 100 Nasal Cannula 2.0 28 12/04/18 10:46 88 22 96 Nasal Cannula 2.0 28 12/04/18 09:00 Nasal Cannula 3.0 12/04/18 08:00 98.1 93 16 131/86 (101) 93 Intake and Output 12/04/18 12/05/18 19:00 07:00 Intake Total 355 ml Balance 355 ml Intake Oral 300 ml IV Total 55 ml # Voids 2 3 # Bowel Movements 1 Height (Feet): 5 Height (Inches): 4.00 Weight (Pounds): 130 Objective General Appearance: WD/WN, alert Neck: supple Cardiovascular: regular rhythm Respiratory/Chest: expiratory wheezing Abdomen: normal bowel sounds, non tender, soft Edema: no edema noted Arm (L), no edema noted Arm (R), no edema noted Leg (L), no edema noted Leg (R), no edema noted Pedal (L), no edema noted Pedal (R), no edema noted Generalized Moustapha George MD Dec 05, 2018 07:34
--- NOTE | 2018-12-05 07:45 | NUR ---
NURSE NOTES: Patient received, resting in bed with mother by the bedside. Alert and oriented, with mild to moderate cough observed. Currently receiving breathing treatment. IV noted on right arm, patent and intact. Bed locked in lowest position, call light placed within reach. Will continue to monitor.
[2018-12-05 08:00] VITALS: BP 114/68
--- NOTE | 2018-12-05 08:28 | Pulmonology Progress Note ---
Assessment/Plan Assessment/Plan Asthma/COPD exacerbation acute bronchospasm sob prior fracture pneumonia PLAN repeat cxr likely po antibiotics and steroids resume Breo close outpatient follow up impression, plan, and exam edited and reviewed in detail care discussed with RN Subjective Allergies: Coded Allergies: No Known Allergies (Unverified , 11/07/16) Subjective care noted overall improved on oxygen Objective Last 24 Hour Vital Signs Date Time Temp Pulse Resp B/P (MAP) Pulse Ox O2 Delivery O2 Flow Rate FiO2 12/05/18 07:50 82 18 99 Nasal Cannula 2.0 28 12/05/18 07:40 97 Nasal Cannula 2.0 28 12/05/18 07:40 Nasal Cannula 2.0 28 12/05/18 07:40 80 18 97 Nasal Cannula 2.0 28 12/05/18 04:10 98.0 85 19 119/73 (88) 96 12/05/18 03:26 72 18 99 Nasal Cannula 2.0 28 12/05/18 03:16 69 18 98 Nasal Cannula 2.0 28 12/05/18 00:00 97.9 80 19 120/70 (87) 97 12/04/18 23:23 74 18 99 Nasal Cannula 2.0 28 12/04/18 23:16 72 18 98 Nasal Cannula 2.0 28 12/04/18 21:00 Nasal Cannula 2.0 12/04/18 20:00 98.0 87 18 119/70 (86) 93 12/04/18 19:42 95 24 99 Nasal Cannula 2.0 28 12/04/18 19:36 Nasal Cannula 2.0 28 12/04/18 19:36 98 Nasal Cannula 2.0 28 12/04/18 19:33 96 20 98 Nasal Cannula 2.0 28 12/04/18 16:00 98.9 79 19 127/81 (96) 96 12/04/18 15:00 98 24 97 Nasal Cannula 2.0 28 12/04/18 14:59 98.1 12/04/18 14:41 82 20 97 Nasal Cannula 2.0 28 12/04/18 12:00 98.1 76 21 117/72 (87) 96 12/04/18 11:47 98.1 12/04/18 11:02 92 22 100 Nasal Cannula 2.0 28 12/04/18 10:46 88 22 96 Nasal Cannula 2.0 28 12/04/18 09:00 Nasal Cannula 3.0 Intake and Output 12/04/18 12/05/18 19:00 07:00 Intake Total 355 ml Balance 355 ml Intake Oral 300 ml IV Total 55 ml # Voids 2 3 # Bowel Movements 1 Objective WDWN NAD reduced breath sounds bilaterally without rhonchi or wheeze [id number] without MRG NABS nontender no HSM no CCE nonfocal Microbiology Date/Time Source Procedure Growth Status 12/03/18 08:30 Sputum Gram Stain - Final Resulted 12/03/18 08:30 Sputum Sputum Culture - Preliminary NORMAL UPPER RESPIRATORY SALOME AT 24 ... Resulted 12/02/18 13:04 Nasal Nares Influenza Types A,B Antigen (NATHANAEL) - Final Complete Current Medications Medications (Trade) Dose Ordered Sig/Reny Route PRN Reason Start Time Stop Time Status Last Admin Dose Admin Acetaminophen (Tylenol) 650 mg Q6H PRN ORAL Mild and modePain/Temp > 100.5 12/02/18 18:00 01/01/19 17:59 12/04/18 14:29 Acetaminophen/ Hydrocodone Bitart ([place] 5/325) 1 tab Q6H PRN ORAL For severe Pain 12/02/18 18:00 12/09/18 17:59 12/04/18 20:28 Albuterol/ Ipratropium (Albuterol/ Ipratropium) 3 ml Q4HRT HHN 12/02/18 19:00 12/07/18 18:59 12/05/18 07:40 Azithromycin (Zithromax) 500 mg DAILY ORAL 12/03/18 09:00 12/10/18 08:59 12/04/18 09:30 Benzonatate (Tessalon Perles) 200 mg THREE TIMES A DAY ORAL 12/04/18 12:00 01/03/19 11:59 12/04/18 12:37 Carisoprodol (Soma) 350 mg Q6H PRN ORAL MUSCLE SPASM 12/02/18 19:30 01/01/19 19:29 12/04/18 11:17 Cefepime HCl 1 gm/ Dextrose 55 ml @ 110 mls/hr Q24H IVPB 12/04/18 09:00 12/11/18 08:59 12/04/18 09:31 Fluticasone Propionate (Flonase) 1 spray TWICE A DAY NASAL 12/04/18 11:30 01/03/19 11:29 12/04/18 19:19 Guaifenesin/ Dextromethorphan (Robitussin DM Syrup) 10 ml Q6H PRN ORAL For Cough 12/02/18 20:30 01/01/19 20:29 12/03/18 06:42 Heparin Sodium (Porcine) (Heparin 5000 units/ml) 5,000 units EVERY 12 HOURS SUBQ 12/02/18 21:00 01/01/19 20:59 12/03/18 20:16 Levothyroxine Sodium (Synthroid) 25 mcg DAILY@0630 ORAL 12/03/18 06:30 01/02/19 06:29 12/05/18 05:37 Liothyronine Sodium (Cytomel) 5 mcg DAILY ORAL 12/03/18 09:00 01/02/19 08:59 12/04/18 09:30 Methylprednisolone Sodium Succinate (Solu-MEDROL) 40 mg Q12HR IVP 12/05/18 09:00 01/04/19 08:59 Pantoprazole (Protonix) 40 mg EVERY 12 HOURS ORAL 12/05/18 09:00 01/04/19 08:59 Promethazine HCl/ Codeine (Phenergan with Codeine) 5 ml Q4H PRN ORAL For Cough 12/03/18 10:45 01/02/19 10:44 12/05/18 05:21 Dimitris Bonner MD Dec 05, 2018 08:27
[2018-12-05] MEDS: Heparin 5000 units/ml inj SUBQ SCH ×2 (09:00→20:15)
[2018-12-05] MEDS: Liothyronine 5mcg tab ORAL SCH (09:33)
[2018-12-05] MEDS: Benzonatate 100mg Perles ORAL SCH ×3 (09:34→18:00)
[2018-12-05] MEDS: Azithromycin 250mg tab ORAL SCH (09:34)
[2018-12-05] MEDS: Cefepime HCl 1 GM in D5W 55 ML IVPB SCH (09:36)
[2018-12-05] MEDS: Flonase Nasal Inhaler 16gm NASAL SCH ×2 (10:06→17:44)
[2018-12-05] MEDS: HYDROcodone/Acetamin 5/325 tab ORAL PRN ×2 (11:23→20:15)
[2018-12-05 12:00] VITALS: BP 143/87
--- NOTE | 2018-12-05 15:20 | NUR ---
*-* INSURANCE *-* ALL CLINICAL AND REVIEWS HAVE BEEN FAXED TO: GIOVANNI MIGUEL AUTH#[id number] FAX ALL CLINICALS TO [phone]
--- NOTE | 2018-12-05 15:30 | Diagnostic Imaging Report ---
Indication: Cough Technique: 2 views of the chest Comparison: Single view chest dated 12/02/2018 Findings: Lungs and pleural spaces are clear. The heart size is normal. The bones are unremarkable. No significant interim change. Impression: Negative
[2018-12-05 16:00] VITALS: BP 139/73
--- NOTE | 2018-12-05 16:39 | NUR ---
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
--- NOTE | 2018-12-05 18:03 | NUR ---
NURSE NOTES: Patient has refused to take Tessalon Perles and is refusing all future doses as she reports it makes her cough more severe. Patient reports current treatment regimen seems to be sufficient without it.
--- NOTE | 2018-12-05 19:32 | NUR ---
HAND-OFF: Report given to Rajni COBIAN.
--- NOTE | 2018-12-05 19:33 | NUR ---
NURSE NOTES: Patient received, resting in bed with mother at the bedside. Alert and oriented x4, with mild to moderate cough observed. IV noted on right arm, patent and intact. Bed locked in lowest position, call light placed within reach. Will continue to monitor.
[2018-12-05 20:00] VITALS: BP 126/78
[2018-12-06] VITALS: BP 124/86
[2018-12-06] MEDS: Promethazine/Codeine 5ml UD ORAL PRN ×2 (03:06→08:22)
[2018-12-06] MEDS: HYDROcodone/Acetamin 5/325 tab ORAL PRN (03:11)
[2018-12-06] MEDS: Albuterol/Ipratropium 3ml neb HHN SCH ×3 (03:17→11:01)
--- NOTE | 2018-12-06 03:35 | NUR ---
NURSE NOTES: Received a report from MANGO Urban. Pt is in stable condition. AAOX4. Able to make needs known. Family member at the bedside. IV site is patent and intact. Bed in lowest position. Call light within reach. Will continue to monitor.
[2018-12-06 04:00] VITALS: BP 134/71
[2018-12-06] MEDS: Levothyroxine 25mcg tab ORAL SCH (05:58)
--- NOTE | 2018-12-06 07:00 | NUR ---
HAND-OFF: Report given to MANGO Mcdaniel.
--- NOTE | 2018-12-06 07:36 | NUR ---
NURSE NOTES: Received pt from MANGO SHEPARD. Pt is alert and orient x4. pt has intact iv access RFA 22G SL. Pt's mom is bed side. pt is still coughing. all needs attended, bed is locked and is in the lowest position, call light within easy reach. will continue to monitor.
[2018-12-06 08:00] VITALS: BP 118/75
--- NOTE | 2018-12-06 08:03 | Pulmonology Progress Note ---
Assessment/Plan Assessment/Plan Asthma/COPD exacerbation acute bronchospasm sob prior fracture pneumonia- cleared PLAN repeat cxr discussed po antibiotics and steroids resume Breo close outpatient follow up and monitoring of lung function impression, plan, and exam edited and reviewed in detail care discussed with RN Subjective Allergies: Coded Allergies: No Known Allergies (Unverified , 11/07/16) Subjective care noted overall improved with mild residual cough on oxygen Objective Last 24 Hour Vital Signs Date Time Temp Pulse Resp B/P (MAP) Pulse Ox O2 Delivery O2 Flow Rate FiO2 12/06/18 07:06 78 18 99 Nasal Cannula 2.0 28 12/06/18 06:49 Nasal Cannula 2.0 28 12/06/18 06:49 96 Nasal Cannula 2.0 28 12/06/18 06:49 64 16 96 Nasal Cannula 2.0 28 12/06/18 04:00 97.8 69 18 134/71 (92) 96 12/06/18 03:27 70 18 98 Nasal Cannula 2.0 28 12/06/18 03:17 83 18 95 Nasal Cannula 2.0 28 12/06/18 00:00 98.0 72 20 124/86 (99) 95 12/05/18 23:27 78 18 98 Nasal Cannula 2.0 28 12/05/18 23:14 65 18 96 Nasal Cannula 2.0 28 12/05/18 21:00 Nasal Cannula 2.0 12/05/18 20:00 98.6 82 18 126/78 (94) 94 12/05/18 19:35 Nasal Cannula 2.0 28 12/05/18 19:34 99 Nasal Cannula 2.0 28 12/05/18 19:33 77 18 99 Nasal Cannula 2.0 28 12/05/18 19:21 81 18 96 Nasal Cannula 2.0 28 12/05/18 16:14 95 18 99 Nasal Cannula 2.0 28 12/05/18 16:04 82 18 98 Nasal Cannula 2.0 28 12/05/18 16:00 98.5 68 20 139/73 (95) 95 12/05/18 12:00 97.9 78 20 143/87 (105) 95 12/05/18 11:41 80 18 98 Nasal Cannula 2.0 28 12/05/18 11:25 78 18 99 Nasal Cannula 2.0 28 12/05/18 09:00 Nasal Cannula 2.0 Intake and Output 12/05/18 12/06/18 19:00 07:00 Intake Total 720 ml Balance 720 ml Intake Oral 720 ml # Voids 10 Objective WDWN NAD reduced breath sounds bilaterally without rhonchi or wheeze [id number] without MRG NABS nontender no HSM no CCE nonfocal no distress Microbiology Date/Time Source Procedure Growth Status 12/03/18 08:30 Sputum Gram Stain - Final Complete 12/03/18 08:30 Sputum Sputum Culture - Final NORMAL UPPER RESPIRATORY SALOME PRESENT Complete Current Medications Medications (Trade) Dose Ordered Sig/Reny Route PRN Reason Start Time Stop Time Status Last Admin Dose Admin Acetaminophen (Tylenol) 650 mg Q6H PRN ORAL Mild and modePain/Temp > 100.5 12/02/18 18:00 01/01/19 17:59 12/04/18 14:29 Acetaminophen/ Hydrocodone Bitart ([place] 5/325) 1 tab Q6H PRN ORAL For severe Pain 12/02/18 18:00 12/09/18 17:59 12/06/18 03:11 Albuterol/ Ipratropium (Albuterol/ Ipratropium) 3 ml Q4HRT HHN 12/02/18 19:00 12/07/18 18:59 12/06/18 06:49 Azithromycin (Zithromax) 500 mg DAILY ORAL 12/03/18 09:00 12/10/18 08:59 12/05/18 09:34 Benzonatate (Tessalon Perles) 200 mg THREE TIMES A DAY ORAL 12/04/18 12:00 01/03/19 11:59 12/05/18 09:34 Carisoprodol (Soma) 350 mg Q6H PRN ORAL MUSCLE SPASM 12/02/18 19:30 01/01/19 19:29 12/04/18 11:17 Cefepime HCl 1 gm/ Dextrose 55 ml @ 110 mls/hr Q24H IVPB 12/04/18 09:00 12/11/18 08:59 12/05/18 09:36 Fluticasone Propionate (Flonase) 1 spray TWICE A DAY NASAL 12/04/18 11:30 01/03/19 11:29 12/05/18 17:44 Guaifenesin/ Dextromethorphan (Robitussin DM Syrup) 10 ml Q6H PRN ORAL For Cough 12/02/18 20:30 01/01/19 20:29 12/03/18 06:42 Heparin Sodium (Porcine) (Heparin 5000 units/ml) 5,000 units EVERY 12 HOURS SUBQ 12/02/18 21:00 01/01/19 20:59 12/03/18 20:16 Levothyroxine Sodium (Synthroid) 25 mcg DAILY@0630 ORAL 12/03/18 06:30 01/02/19 06:29 12/06/18 05:58 Liothyronine Sodium (Cytomel) 5 mcg DAILY ORAL 12/03/18 09:00 01/02/19 08:59 12/05/18 09:33 Methylprednisolone Sodium Succinate (Solu-MEDROL) 40 mg Q12HR IVP 12/05/18 09:00 01/04/19 08:59 12/05/18 20:14 Pantoprazole (Protonix) 40 mg EVERY 12 HOURS ORAL 12/05/18 09:00 01/04/19 08:59 12/05/18 20:15 Promethazine HCl/ Codeine (Phenergan with Codeine) 5 ml Q4H PRN ORAL For Cough 12/03/18 10:45 01/02/19 10:44 12/06/18 03:06 Dimitris Bonner MD Dec 06, 2018 08:03
--- NOTE | 2018-12-06 08:11 | NUR ---
RADIOLOGY DEPT., CHEST X-RAY COMPLETED.-P.DYE
[2018-12-06] MEDS: Solu-MEDROL 40mg Inj IVP SCH (08:22)
[2018-12-06] MEDS: Benzonatate 100mg Perles ORAL SCH ×2 (08:22→13:00)
[2018-12-06] MEDS: Azithromycin 250mg tab ORAL SCH (08:23)
[2018-12-06] MEDS: Liothyronine 5mcg tab ORAL SCH (08:23)
[2018-12-06] MEDS: Cefepime HCl 1 GM in D5W 55 ML IVPB SCH (08:32)
[2018-12-06] MEDS: Flonase Nasal Inhaler 16gm NASAL SCH (08:32)
[2018-12-06] MEDS: Heparin 5000 units/ml inj SUBQ SCH (08:33)
[2018-12-06] MEDS ORDERED: SINGULAIR10 MG ORAL (11:58)
[2018-12-06 12:00] VITALS: BP 140/79
[2018-12-06] MEDS ORDERED: PROTONIX40 MG ORAL (12:00)
[2018-12-06] MEDS ORDERED: BREO ELLIPTA 21 EACH IH (12:01)
--- NOTE | 2018-12-06 13:00 | NUR ---
*-* INSURANCE *-* ALL CLINICAL AND REVIEWS HAVE BEEN FAXED TO: GIOVANNI MIGUEL AUTH#[id number] FAX ALL CLINICALS TO [phone]
--- NOTE | 2018-12-06 13:00 | NUR ---
NURSE NOTES: Dr KUMAR visited pt and discharged pt. pt has an prescription and pt asked RN to give prescription to her pharmacy by pt. all discharge assessments and instructions done and pt verbally confirmed to understand all. pt is stable, V/S stable. pt consumed 80% of lunch and tolerate well. IV access D/C. pt left hospital with accompany of hr mother.
--- NOTE | 2018-12-06 18:36 | Cardiology Report ---
APPROVED REPORT EKG Measurement Heart [id number] Normal sinus rhythm Normal ECG
--- NOTE | 2018-12-09 11:04 | Discharge Summary ---
Discharge Summary Discharge Summary _ DATE OF ADMISSION: 12/02/2018 DATE OF DISCHARGE: 12/06/2018 DISCHARGED BY: Dr. Bonner REASON FOR ADMISSION: 68 years old female with past medical history of COPD/asthma, hypothyroidism, was treated in the emergency department at [facility] few days prior with nebulizing treatment. She felt better afterwards and was discharged from the emergency room. She presented to [facility] complaining of cough, dyspnea, and wheezing. Cough productive with yellow phlegm, mostly clear. She denied chest pain. Upon evaluation patient was tachycardic and hypoxic. She required supplemental oxygen to maintain appropriate oxygenation., Laboratory workup revealed no leukocytosis, stable hemoglobin and hematocrit. Elevated eosinophils- 4.9. Potassium 3.2. Stable renal parameters. Lactic acid 1.4 EKG revealed sinus tachycardia, no acute ischemic changes. Chest x-ray demonstrated questionable 2 cm right upper lobe nodule. In emergency department there was a concern about possible pertussis , subsequently DPT vaccine was given. Patient was administered azithromycin. Patient received nebulizing treatment with bronchodilator and antitussive. Inhaled lidocaine was given as well. Patient remained hypoxemic and subsequently was admitted for further management. CONSULTANTS: pulmonary Dr. Bonner HOSPITAL COURSE Patient admitted and started on IV steroids and antibiotics. Supplemental oxygen provided as needed to keep pulse oximetry above 92%. Pulmonary toilet with bronchodilator provided Patient undergone CT of the chest due to questionable pulmonary nodule, seen on initial chest x-ray CT of the chest revealed mild diffuse bronchial wall thickening, suggesting bronchitis. Scattered foci of peribronchial ground-glass haziness in the right upper lobe and subtle tree-in-bud ground-glass nodularity in the left lower lobe, likely early infectious or inflammatory pneumonitis. Consider atypical etiologies such as viral, fungal, or mycobacterial. Patient was provided with antibiotics cefepime and azithromycin. Sputum culture was negative. Influenza screen test was negative. Viral throat culture was negative. Patient recently was treated with Bactrim for pneumonia as outpatient. Sputum culture at that time revealed Stenotrophomonas. Antitussive provided as needed. IV steroids tapered down. Follow-up chest x-ray was negative Potassium was replaced. GI prophylaxis provided. Synthroid was continued. Patient clinically improved. Pulse oximetry was stable on room air. Shortness of breath resolved. Patient was stable for discharge home with close outpatient follow-up. FINAL DIAGNOSIS COPD/asthma exacerbation Acute bronchospasm Bronchitis Pneumonia recent-resolved Hypothyroidism DISCHARGE MEDICATIONS: See Medication Reconciliation list. DISCHARGE INSTRUCTIONS: Patient was discharged home . Follow up with primary care provider in one week. Closed follow-up as outpatient with the social studies teacher recommended I have been assigned to dictate discharge summary for this account. I was not involved in the patient's management. Katia Chadwick NP Dec 09, 2018 11:04
== END 2018-12-06 13:00 | disposition home or self-care (01) | DRG 190 ==
LOC: EMR 13:08 → 4E 15:28 → EDBEDREQ 15:50 → 4E 18:56
DX: J44.0 Chronic obstructive pulmonary disease with (acute) lower respiratory infection (principal); J18.9 Pneumonia, unspecified organism; J44.1 Chronic obstructive pulmonary disease with (acute) exacerbation; E03.9 Hypothyroidism, unspecified; J40 Bronchitis, not specified as acute or chronic; J98.01 Acute bronchospasm
CPT/HCPCS: 36415; 71045; 71046; 71250; 80048; 80053; 81003; 82550; 83605; 83880; 85025; 85610; 85730; 86710; 87070; 87205; 90471; 90715; 93005; 94640; 94664; 94760; 96365; 96375; 99285; J7620; J8499